=== PATIENT | female | born 1975 | race Caucasian/White ===

== ENCOUNTER → 2019-10-14 07:31 | Outpatient (CLI) | payer BC, SELFPAY ==
[2019-10-14 10:24] LABS: Coronavirus 19 IgG Antibody Negative (Negative); Coronavirus 19 IgM Antibody Negative (Negative)
== END ==
PROVIDERS: Visit Provider Internal Medicine Gastroenterology
DX: Z01.818 Encounter for other preprocedural examination (principal)
CPT/HCPCS: 36415; 86328

== ENCOUNTER 2019-10-15 10:29 | Day surgery (SDC) | payer BC, SELFPAY ==
[2019-10-12 16:37] VITALS: BMI 19.9
--- NOTE | 2019-10-13 09:44 | SUR.PREOP ---
10/13/2019 @ 0944--PHONE CALL MADE TO PATIENT. PATIENT UNDERSTANDS THAT LAB WORK AND COVID TESTING NEEDS TO BE COMPLETED @ 0700 ON 10/14/2019. PATIENT UNDERSTANDS IF LAB WORK AND COVID-19 TESTS ARE NOT COMPLETED BY 12PM ON THAT DATE, THE SURGERY SCHEDULED WILL BE CANCELLED AND RESCHEDULED FOR ANOTHER TIME.
[2019-10-15] VITALS (7 sets, daily range): BP systolic 98–109; BP diastolic 60–72; PULSE 69–93; RESP 18; TEMP 36.4–36.5; O2SAT 95–100
[2019-10-15 11:31] LABS: Urine Pregnancy, HCG Qual. Negative (Negative)
--- NOTE | 2019-10-15 11:34 | SUR.PREOP ---
pt has history of double mastectomy. No limb alert applies per patient. Right eye lens implant.
--- NOTE | 2019-10-15 12:23 | HMH.PROC ---
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 She has functional dyspepsia and functional GERD. She has had recurrent throat pain with globus sensation. She had been on Reglan in the past. She also derive some improvement with Ativan. She has had marked anxiety/stress which often is a trigger. Her last EGD with dilation was June 2018. Procedure: Prior to the procedure, a history and physical exam was performed, and patient's medications and allergies were reviewed. The risks, benefits and alternatives of the sedation and procedure were discussed with the patient. All questions were answered and informed consent was obtained. The patient was brought to the procedure room. Patient identification and proposed procedure were verified by the physician and the nurse. The patient was placed in a left lateral decubitus position and the scope was passed under direct vision. Throughout the procedure, the patient's blood pressure, pulse, and oxygen saturations were monitored continuously. The upper GI endoscopy was accomplished without difficulty. The patient tolerated the procedure well. Findings: The scope was passed directly into the upper esophagus and advanced to the third portion of the duodenum. The post bulbar duodenum and duodenal bulb were normal with normal mucosa and conniventes. The scope was withdrawn through a normal duodenal bulb and pylorus into the stomach. There was some very mild linear reactive gastropathy of the antrum. The remainder of the antrum, body and fundus of the stomach were grossly normal. Upon retroflexion there was a small 1 to 2 cm sliding hiatal hernia. The scope was then withdrawn into the esophagus. There was no evidence of reflux esophagitis or Nicole's. There was no Schatzki's ring. There were tertiary contractions and evidence of moderate esophageal dysmotility. The entire esophagus was dilated to 60 Kazakh/20 mm with a TTS hydrostatic balloon. There was resistance at the cricopharyngeus with increased upper esophageal sphincter resting tone. The remainder of the esophageal mucosa was normal. Impression: 1. Cricopharyngeal spasm status post dilation to 20 mm 2. Nonerosive GERD with moderate esophageal dysmotility Plan: I will discuss additional treatment options including promotility therapy. I would consider initiation of Zelnorm. I will also recommend benzodiazepine/Ativan. I will then reassess for clinical improvement.
== END 2019-10-15 13:36 | disposition home or self-care (01) ==
LOC: OUTP 10:30
PROVIDERS: PCP Family Medicine; Visit Provider Internal Medicine Gastroenterology
PROC: 0DJ08ZZ Inspection of Upper Intestinal Tract, Via Natural or Artificial Opening Endoscopic (ICD-10-PCS; CPT 43235; principal; 2019-10-15 11:30)
DX: J39.2 Other diseases of pharynx (principal); K22.4 Dyskinesia of esophagus; K21.9 Gastro-esophageal reflux disease without esophagitis; K44.9 Diaphragmatic hernia without obstruction or gangrene; E03.9 Hypothyroidism, unspecified; F41.9 Anxiety disorder, unspecified; Z91.040 Latex allergy status; Z88.8 Allergy status to other drugs, medicaments and biological substances; Z80.3 Family history of malignant neoplasm of breast; Z83.3 Family history of diabetes mellitus; Z82.49 Family history of ischemic heart disease and other diseases of the circulatory system; Z90.13 Acquired absence of bilateral breasts and nipples
CPT/HCPCS: 43249; 81025; C1726

== ENCOUNTER 2024-10-27 11:42 | Outpatient (CLI) | payer BC, SELFPAY ==
--- OUTSIDE RECORDS SUMMARY | 2024-09-15 09:00 | XMS_ITS | Encounter Summary ---
Author Organization Healthcare Address [address] [place] [address] Care Team Providers Care Water Filterer Name Role Phone Cory Sandhu MD Primary Care Provider [phone] Skyler Márquez MD Unavailable [phone] Farooq Lacey MD Unavailable Unavailable Encounter Details Date Type Department Care Team (Latest Contact Info) Description 09/15/2024 9:00 AM EDT - 09/15/2024 11:59 PM EDT [facility] [address], [address] [place] [address] Closed fracture of neck of right femur, initial encounter Discharge Disposition: Home or Self Care Social History Tobacco Use Types Packs/Day Years Used Date Smoking Tobacco: Never Passive Smoke Exposure: Never Smokeless Tobacco: Never Alcohol Use Standard Drinks/Week Comments Yes 2 (1 standard drink = 0.6 oz pur e alcohol) rarely Humiliation, Afraid, Rape, and Kick questionnair e Answer Date Recorded Within the last year, have y ou been afraid of your partner or ex-partner? No 03/24/2024 Within the last year, have y ou been humiliated or emotionally abused in other ways by your partner or ex-partner? No Within the last year, have y ou been kicked, hit, slapped, or otherwise physically hurt by your partner or ex-partner? No 03/24/2024 Within the last year, have y ou been raped or forced to have any kind of sexual activity by your partner or ex-partner? No 03/24/2024 PHQ-2 Answer Date Recorded Patient Health Questionnaire-2 Score 0 06/09/2024 Hunger Vital Sign Answer Date Recorded Within the past 12 months, y ou worried that your food would run out before you got the money to buy more. Never true 03/24/20 24 Within the past 12 months, t he food you bought just didn't last and you didn't have money to get more. Never true 03/24/2024 PRAPARE - Transportation Answer Date Re corded In the past 12 months, has l ack of transportation kept you from medical appointments or from getting medications? No 10/2023 In the past 12 months, has l ack of transportation kept you from meetings, work, or from getting things needed for daily living? No 03/24/2024 Housing Stability Vital Sign Answer Ck e Recorded In the last 12 months, was t here a time when you were not able to pay the mortgage or rent on time? No 03/24/2024 In the last 12 months, how many places have you lived? 1 03/24/2024 In the last 12 months, was t here a time when you did not have a steady place to sleep or slept in a senior care (including now)? No 03/24/2024 PHQ-9 Answer Date Recorded Patient Health Questionnaire-9 Score 2 06/09/2024 CAGE ASSESSMENT Answer Date Recorded Cage unable to access Not on file 03/21/2024 Maximum number of drinks you had on a given occasion in the last month? 1 drink 03/21/2024 How many alcoholic Beverages do you typically drink in a week? 0 - 7 per week 03/21/2024 Have you ever felt you should CUT down on your d rinking? 0 03/21/2024 Have you been ANNOYED by peo ple criticizing your drinking? 0 03/21/2024 Have you felt GUILTY about your drinking? 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 0 03/21/2024 CAGE Questionnaire Score 0 024 Utilities Answer Date Recorded In the past 12 months has th e [employer], gas, oil, or water [employer] threatened to shut off services in your home? 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 cholecalciferol (Vitamin D-3) 50 MCG (1999 UT) capsuleIndications: Other osteoporosis without current pathological fracture Take 1 capsule (2,000 Units) by mouth 1 (one) time each day. 04/29/2024 cyclobenzaprine (Flexeril) 5 MG tablet TAKE 1-2 TABLETS BY MOUTH UP TO THREE TIMES PER DAY NEEDED FOR MUSCLE SPASMS 40 tablet 07/13/2024 LORazepam (Ativan) 1 MG tablet Take 1 tablet (1 mg) by mouth at night if needed. For esophageal spasms magnesium, as gluconate, (Magonate) 500 (27 Mg) MG tablet Take 1 tablet (500 mg) by mouth 2 (two) times a day. Pt states she is taking 200mg ondansetron ODT (Zofran-ODT) 4 MG disintegrating tablet Take 1 tablet (4 mg) by mouth every 6 (six) hours if needed for nausea or vomiting. 20 tablet 03/26/2024 Probiotic Product (align) 4 MG capsule 1 capsule (4 mg). 06/03/2023 propranolol (Inderal) 10 MG tablet Take 1 tablet (10 mg) by mouth 2 (two) times a day. Zoledronic Acid (RECLAST IV) Infuse into a venous catheter. DULoxetine (Cymbalta) [address] capsule Take 1 capsule (30 mg) by mouth 1 (one) time each day. Do not crush or chew. liothyronine (Cytomel) 5 MCG tabletIndications:A cquired hypothyroidism Please take 0.5 tablet in AM only. 30 tablet 2 08/11/2024 5 Synthroid 75 MCG tabletIndications:A cquired hypothyroidism Take 1 tablet by mouth daily. 30 tablet 2 08/11/2024 5 documented as of this encounter Plan of Treatment Upcoming Encounters Date Type Department Care Team (Late st Contact Info) Description 11/18/2024 9:30 AM EDT Office Visit [facility] Medicine Specialties [address] [place] [phone] Guilherme Nicole MD [address] [facility] [address] [place] [address] 11/23/2024 12:30 PM EDT Clinical Support [facility] [place] [address] [facility], [address] [place] [phone] 12/07/2024 10:15 AM EDT Office Visit [facility] [place] [address] [facility], [address] [place] [phone] Martinez Panda MD [address] [facility] [address] [place] [phone] 02/21/2025 1:20 PM EDT Office Visit [facility] [place] [address], [address] [place] [address] Edu Allen MD [address] [facility] [address] [place] [address] 03/16/2025 9:50 AM EDT Office Visit [facility] [address] [place] [address] Erik Marin MD [address] [facility] [address] [place] [address] 10/26/2025 9:00 AM EDT Office Visit [facility] [address] [place] [address] Jabari Ballard MD [address] [place] [address] documented as of this encounter Procedures Procedure Name Priority Date/Time Associated Diagnosis Comments XR HIP RIGHT 2 OR 3 VIEWS Routine 09/15/2024 9:13 AM EDT Closed fracture of neck of right femur, initial encounter documented in this encounter Results * XR Hip Right 2 or 3 Views (09/15/2024 9:13 AM EDT) Anatomical Region Laterality Modality Lower Extremities, Hip Right Digital R adiography Impressions 09/15/2024 10:11 AM EDT Healed right femoral neck fracture neck fracture without hardware complication or change in fracture fragment alignment. CRITICAL RESULT: No. COMMUNICATION: Per this written report. Drafted by Jonathan Frost MD on 09/15/2024 10:10 AM Final report signed by Jonathan Frost MD on 09/15/2024 10:11 AM Narrative 09/15/2024 10:11 AM EDT CLINICAL INDICATION: pain TECHNIQUE: XR HIP RIGHT 2 OR 3 VIEWS COMPARISON: June 16, 2024. FINDINGS: 2 views of the right hip show dynamic hip screw fixation of subcapital fracture with unchanged valgus alignment of the femoral neck. Hip joint space and alignment are normal. No hardware complication. Pubic symphysis and sacroiliac joints are normal. Procedure Note Jonathan Frost MD - 09/15/2024 CLINICAL INDICATION: pain TECHNIQUE: XR HIP RIGHT 2 OR 3 VIEWS COMPARISON: June 16, 2024. FINDINGS: 2 views of the right hip show dynamic hip screw fixation of subcapitalfracture with unchanged valgus alignment of the femoral neck. Hip jointspace and alignment are normal. No hardware complication. Pubic symphysisand sacroiliac joints are normal. IMPRESSION: Healed right femoral neck fracture neck fracture without hardwarecomplication or change in fracture fragment alignment. CRITICAL RESULT: No. COMMUNICATION: Per this written report. Drafted by Jonathan Frost MD on 09/15/2024 10:10 AM Final report signed by Jonathan Frost MD on 09/15/2024 10:11 AM us Erik Marin MD IMG XR PROCEDURES Final Resu lt documented in this encounter Visit Diagnoses Diagnosis Closed fracture of neck of right femur, initial encounter documented in this encounter Additional Health Concerns Assessment Noted Time PHQ-9 Depression Total Score: 2 06/09/19 25 8:21 AM EST A fall risk assessment has been complete d for the patient 09/15/2024 9:25 AM EDT A Body Mass Index follow-up plan has been documented for the patient 09/16/2024 1:03 PM EDT documented as of this encounter Care Teams Water Filterer Relationship Specialty Start Date End Date Cory Sandhu MD [address] [place] [address] PCP - General 01/24/21 Skyler Márquez MD [address] [facility], [place] [address] Referring Physician 03/12/21 Farooq Lacey MD [address] [facility], [place] [address] Resident Neurology 05/01/21 documented as of this encounter
--- OUTSIDE RECORDS SUMMARY | 2024-09-15 09:50 | XMS_ITS | Encounter Summary ---
Author Organization Healthcare Address [address] [place] [address] Care Team Providers Care Weekend Receptionist Name Role Phone Cory Sandhu MD Primary Care Provider [phone] Skyler Márquez MD Unavailable [phone] Farooq Lacey MD Unavailable Unavailable Reason for Visit * Reason Comments Follow-up Encounter Details Date Type Department Care Team (Late st Contact Info) Description 09/15/2024 9:50 AM EDT Office Visit [facility] [address] [place] [address] Erik Marin MD [address] [place] [address] Closed fracture of neck of right femur, initial encounter (Primary Dx) Social History Tobacco Use Types Packs/Day Years [...] place to sleep or slept in a detention (including now)? 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 0 03/21/2024 CAGE Questionnaire Score 0 024 Utilities Answer Date Recorded In the past 12 months has th e [employer], gas, oil, or water company threatened to shut off services in your [...] on file documented as of this encounter Last Filed Vital Signs Vital Sign Reading Time Taken Comments Blood Pressure 103/72 09/15/2024 9:27 AM EDT Pulse 110 09/15/2024 9:27 AM EDT Temperature 36.6 C (97.9 F) 09/15/2024 9:27 AM EDT Respiratory Rate - - Oxygen Saturation 98% 09/15/2024 9:27 AM EDT Inhaled Oxygen Concentration - - Weight 61.2 kg (135 lb) 09/15/2024 9:27 AM EDT Height 175.3 cm (5' 9 ) 09/15/2024 9:27 AM EDT Body Mass Index 19.94 09/15/2024 9:27 AM EDT documented in this encounter Miscellaneous Notes * Progress Notes - Tremaine Poon MD - 09/15/2024 9:50 AM EDT Chief Complaint: Right femoral neck fracture status post open reduction internal fixation 03/22/24 HPI: Jacquelyn Dickey is a 49 y.o. female who presents for follow up of the above stated procedures. Patient presents to clinic today with multiple complaints. 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 She now has significant pain in multiple joints including her right hip. She continues to ambulate with a walker only. She localizes her right hip pain to her groin region. She does report that she has been progressing with physical therapy but his curious how much she can push. She was often limited in therapy dueto pain in her other joints. She does have an appointment with Rheumatology next week for further evaluation. Focused MSK Exam: On examination of the right lower extremity she has no pain with log roll her shedoes have tenderness to palpation over the lateral aspect of the right hip. Her hip range of motionis 0 to 70?? with significant pain past 70??. External rotation to 60??. Internal rotation is 10??.Distally she is neurovascularly intact. XRAY: XR --- were ordered, reviewed, and interpreted by us, showing: Interval healing of fracture without evidence of hardware loosening or malfunction Assessment: 49 y.o. female presents s/p above procedure Plan: Reviewed the findings with the patient today. She was still having significant pain in multiple joints it was limiting her from progressing in physical therapy. She has a rheumatology appointment in about a week that will hopefully provide her with next best steps to help her polyarthralgia. Radiographs of the pleased she has healed her fracture well. We will recommend continuing physical therapyas she was able. We will plan to see her back in 6 months with repeat radiographs. The patients images were discussed with them. The patient was given an opportunity to ask questionsand all their questions were answered to their satisfaction. The patient was seen and evaluated by myself and Dr. Marin. Tremaine Poon MD Orthopedic Surgery PGY-2 [facility] Personal Pager: [phone] Orthopaedic Trauma Service Pager: [phone] Orthopaedic Recon/Spine/Foot and Ankle Service Pager: [phone] Cosigned by Erik Marin MD at 09/15/2024 2:25 PM EDT Associated attestation - Erik Marin MD - 09/15/2024 2:25 PM EDT I saw and evaluated the patient with the resident/fellow. I discussed the case with the resident/fellow and agree with the findings and plan as documented. documented in this encounter Plan of Treatment Upcoming Encounters Date Type Department Care Team (Late st Contact Info) Description 11/18/2024 9:30 AM EDT Office Visit [facility] Specialties [address] [place] [address] Guilherme Nicole MD [address] [place] [address] 11/23/2024 12:30 PM EDT Clinical Support [facility] [address] [facility], [address]st [place] [phone] 12/07/2024 10:15 AM EDT Office Visit [facility] [address] [facility], [address] [place] [phone] Martinez Panda MD [address] [facility] [address] [place] [address] 02/21/2025 1:20 PM EDT Office Visit [facility] [address], [address] [place] [address] Edu Allen MD [address] [facility] [address] [place] [address] 03/16/2025 9:50 AM EDT Office Visit [facility] [address] [place] [address] Erik Marin MD [address] [facility] [address] [place] [address] 10/26/2025 9:00 AM EDT Office Visit [facility] [address] [place] [address] Jabari Ballard MD [address] [facility] [address] [place] [phone] Scheduled Orders Name Type Priority Associated Diagnoses Orde r Schedule XR Hip Right 2 or 3 Views Imaging Routine Closed fracture of neck of right femur, initial encounter Expected: 03/17/2025 (Approximate), Expires: 03/17/2026 documented as of this encounter Visit Diagnoses Diagnosis Closed fracture of neck of right femur, initial encounter- Primary documented in this encounter Additional Health Concerns Assessment Noted Time PHQ-9 Depression Total Score: 2 06/09/19 25 8:21 AM EST A fall risk assessment has been complete d for the patient 09/15/2024 9:25 AM EDT A Body Mass Index follow-up plan has been documented for the patient 09/16/2024 1:03 PM EDT documented as of this encounter Care Teams Weekend Receptionist Relationship Specialty Start Date End Date Cory Sandhu MD [address] [place] [address] PCP - General 01/24/21 Skyler Márquez MD [address] [facility], [place] [address] Referring Physician 03/12/21 Farooq Lacey MD [address] [facility], [place] [address] Resident Neurology 05/01/21 documented as of this encounter
--- OUTSIDE RECORDS SUMMARY | 2024-10-20 09:15 | XMS_ITS | Encounter Summary ---
Author Organization Healthcare Address [address] [place] [address] Care Team Providers Care Technical Advisor Name Role Phone Cory Sandhu MD Primary Care Provider [phone] Skyler Márquez MD Unavailable [phone] Farooq Lacey MD Unavailable Unavailable Reason for Visit * Reason Comments Follow-up Encounter Details Date Type Department Care Team (Late st Contact Info) Description 10/20/2024 9:15 AM EDT Office Visit [facility] [address] [facility] [address] [place] [address] Jabari Ballard MD [address] [facility] [address] [place] [address] Monoallelic mutation of PALB2 gene (Primary Dx) Social History Tobacco Use Types Packs/Day Years Used Date Smoking Tobacco: Never Passive Smoke Exposure: Never Smokeless Tobacco: Never Tobacco Cessation:Counseling Given: Not Answered Alcohol Use Standard Drinks/Week Comments Yes 2 [...] Date Recorded Patient Health Questionnaire-2 Score 0 10/20/2024 Hunger Vital Sign Answer Date Recorded Within [...] place to sleep or slept in a mcc (including now)? 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 0 03/21/2024 CAGE Questionnaire Score 0 024 Utilities Answer Date Recorded In the past 12 months has e electric, gas, oil, or water company threatened to [...] Sign Reading Time Taken Comments Blood Pressure 105/73 10/20/2024 9:12 AM EDT Pulse 80 10/20/2024 9:12 AM EDT Temperature 36.9 C (98.5 F) 10/20/2024 9:12 AM EDT Respiratory Rate 16 10/20/2024 9:12 AM EDT Oxygen Saturation 100% 10/20/2024 9:12 AM EDT Inhaled Oxygen Concentration - - Weight 66.1 kg (145 lb 12.8 oz) 10/20/2024 9:12 AM EDT Height 175.3 cm (5' 9 ) 10/20/2024 9:12 AM EDT Body Mass Index 21.53 10/20/2024 9:12 AM EDT documented in this encounter Functional Status * Over the past 2 weeks, how often have you been bothered by any of the following problems? Question Answer Date of Assessment Author Little interest or pleasure in doing things Not at all 10/20/2024 9:16 AM EDT Jia Dunbar Feeling down, depressed, or hopeless Not at all 10/20/2024 9:16 AM EDT Jia Dunbar Patient Health Questionnaire -2 Score 0 10/20/2024 9:16 AM EDT Jia Dunbar documented as of this encounter Miscellaneous Notes * Progress Notes - Jabari Ballard MD - 10/20/2024 9:15 AM EDT Patient ID: Jacquelyn Dickey is a 49 y.o. female. Referring Physician: No referring provider defined for this encounter. 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 HENT: Negative. Eyes: Negative. Respiratory: Negative. Cardiovascular: Negative. Gastrointestinal: Negative. Endocrine: Negative. Genitourinary: Negative. Musculoskeletal: Positive for arthralgias. Skin: Negative. Neurological: Negative. Hematological: Negative. Psychiatric/Behavioral: Negative. Oncology History No history exists. Past Medical History: Diagnosis Date Anxiety Central pain syndrome Chronic constipation 2017 Cluster headache 04/04/2021 Delayed emergence from general anesthesia Dysphagia 2019 Esophageal dilatation Esophageal spasm multiple esophageal dilations Headache, tension-type 04/04/2021 History of infertility Hx of rn long term care use of blood thinners 03/21-05/02 Hypothyroidism Joint pain Memory loss 04/04/2021 Migraine 04/04/2021 Motion sickness PONV (postoperative nausea and vomiting) POTS (postural orthostatic tachycardia syndrome) following surgery Spinal headache After hysterectomy 2-3 months Status post injection of botulinum toxin September 2022 Vitamin D deficiency Past Surgical History: Procedure Laterality Date BREAST BIOPSY BREAST RECONSTRUCTION 2019 SECTION, CLASSIC 2014 COLONOSCOPY ESOPHAGEAL DILATION EYE SURGERY 2018 Lens implant FEMUR FRACTURE SURGERY Right 03/21/2024 MASTECTOMY 2019 MELANOMA EXCISION Left 04/02/2024 SKIN CANCER EXCISION 2020 Basal cell TOTAL ABDOMINAL HYSTERECTOMY W/ BILATERAL SALPINGOOPHORECTOMY Bilateral 04/04/2021 TAHBSO for PALB2 mutation UPPER GASTROINTESTINAL ENDOSCOPY Esophagus dilation 9 times Current Outpatient Medications on File Prior to Visit Medication Sig Dispense Refill busPIRone (Buspar) 10 MG tablet Take 1 tablet (10 mg) by mouth 2 (two) times a day. cholecalciferol (Vitamin D-3) 50 MCG (2000 UT) capsule Take 1 capsule (2,000 Units) by mouth 1 (one) time each day. (Patient taking differently: Take 1 capsule by mouth 2 times a week.) cyclobenzaprine (Flexeril) 5 MG tablet TAKE 1-2 TABLETS BY MOUTH UP TO THREE TIMES PER DAY NEEDED FOR MUSCLE SPASMS (Patient taking differently: as needed. TAKE 1-2 TABLETS BY MOUTH UP TO THREE TIMES PER DAY NEEDED FOR MUSCLE SPASMS) 40 tablet 0 liothyronine (Cytomel) 5 MCG tablet Please take 0.5 tablet in AM only. 30 tablet 2 LORazepam (Ativan) 1 MG tablet Take 1 tablet (1 mg) by mouth at night if needed. For esophageal spasms magnesium, as gluconate, (Magonate) 500 (27 Mg) MG tablet Take 1 tablet (500 mg) by mouth 2 (two) times a day. Pt states she is taking 200mg ondansetron ODT (Zofran-ODT) 4 MG disintegrating tablet Take 1 tablet (4 mg) by mouth every 6 (six)hours if needed for nausea or vomiting. 20 tablet 0 Probiotic Product (align) 4 MG capsule 1 capsule (4 mg). propranolol (Inderal) 10 MG tablet Take 1 tablet (10 mg) by mouth 2 (two) times a day. Synthroid 75 MCG tablet Take 1 tablet by mouth daily. 30 tablet 2 Zoledronic Acid (RECLAST IV) Infuse into a venous catheter. DULoxetine (Cymbalta) [address] capsule Take 1 capsule (30 mg) by mouth 1 (one) time each day. Do not crush or chew. No current facility-administered medications on file prior to visit. Allergies Allergen Reactions Latex Dermatitis and Hives Voltaren [Diclofenac] Dermatitis Social History Tobacco Use Smoking status: Never Passive exposure: Never Smokeless tobacco: Never Vaping Use Vaping status: Never Used Substance Use Topics Alcohol use: Yes Alcohol/week: 2.0 standard drinks of alcohol Types: 2 Standard drinks or equivalent per week Comment: rarely Drug use: Never Family History Problem Relation Name Age of Onset Breast cancer Mother Karla Dickey Arthritis Mother Karla Dickey Cancer Mother Karla Dickey Hyperlipidemia Mother Karla Dickey Hypothyroidism Mother Karla Dickey Stroke Mother Karla Dickey Ovarian cancer Maternal Grandmother Ratna Gordon Arthritis Maternal Grandmother Ratna Gordon Cancer Maternal Grandmother Ratna Gordon COPD Maternal Grandmother Ratna Gordon Heart disease Maternal Grandmother Ratna Gordon Breast cancer Other Brain Tumor Father Prabhu Dickey Hypertension Father Prabhu Dickey Diabetes Maternal Grandfather Ed Evan Heart disease Maternal Grandfather Ed Evan Kidney disease Maternal Grandfather Ed Gordon Hypertension Maternal Grandfather Ed Evan COPD Paternal Grandfather Kt Dickey Vision loss Paternal Grandfather Kt Dickey Dementia Paternal Grandfather Kt Dickey Arthritis Paternal Grandmother Kadie Dickey Cancer Paternal Grandmother Kadie Dickey COPD Paternal Grandmokrishan Dickey Hearing loss Paternal Grandmother Kadie Dickey Alzheimer's disease Father's Brother Jamey Alzheimer's disease Father's Brother Jonathan Objective Physical Exam: Vital Signs for this encounter: BSA: 1.79 meters squared Visit Vitals BP 105/73 (BP Location: Right arm, Patient Position: Sitting, BP Cuff Size: Large adult) Pulse 80 Temp 36.9 ??C (98.5 ??F) (Temporal) Resp 16 Ht 1.753 m (5' 9 ) Wt 66.1 kg (145 lb 12.8 oz) LMP 03/21/2021 (Approximate) SpO2 100% BMI 21.53 kg/m?? OB Status Hysterectomy Smoking Status Never BSA 1.79 m?? Physical Exam Vitals reviewed. 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 Constitutional: Appearance: Normal appearance. HENT: Head: Normocephalic. Eyes: Conjunctiva/sclera: Conjunctivae normal. Cardiovascular: Rate and Rhythm: Normal rate and regular rhythm. Pulses: Normal pulses. Heart sounds: Normal heart sounds. Pulmonary: Effort: Pulmonary effort is normal. Breath sounds: Normal breath sounds. Chest: Breasts: Right: Normal. No mass. Left: Normal. No mass. Abdominal: General: There is no distension. Palpations: Abdomen is soft. There is no mass. Tenderness: There is no abdominal tenderness. Genitourinary: General: Normal vulva. Vagina: Normal. Uterus: Absent. Adnexa: Right adnexa normal and left adnexa normal. Rectum: Normal. Comments: Mild atrophic vaginal changes, no masses Musculoskeletal: General: Normal range of motion. Cervical back: Normal range of motion. Lymphadenopathy: Upper Body: Right upper body: No supraclavicular or axillary adenopathy. Left upper body: No supraclavicular or axillary adenopathy. Neurological: General: No focal deficit present. Mental Status: She is alert and oriented to person, place, and time. Psychiatric: Mood and Affect: Mood normal. Behavior: Behavior normal. Performance Status: Asymptomatic Pain Scale: 0 Results: WBC Count (10*3/uL) Date/Time Value 03/24/2024 0122 8.17 HGB (g/dL) Date/Time Value 03/24/2024 0122 10.3 (L) HCT (%) Date/Time Value 03/24/2024 0122 31.4 (L) Platelet Count (10*3/uL) Date/Time Value 03/24/2024 0122 163 Creatinine, Plasma (mg/dL) Date/Time Value 10/08/2024 1645 0.83 06/17/2024 1352 0.79 AST, Plasma (U/L) Date/Time Value 10/08/2024 1645 26 04/26/2021 0948 16 CA 125 (U/mL) Date/Time Value 10/20/2024 0916 7.02 05/22/2023 1218 7.25 05/08/2022 0910 7.86 01/24/2021 1141 18.50 Final Diagnosis (no units) Date/Time Value 04/04/2021 1549 A. ovary and fallopian tube, right, salpingo-oophorectomy: - physiologic changes, ovary. - no pathologic abnormality, fallopian tube. B. ovary and fallopian tube, left, salpingo-oophorectomy: - physiologic changes, ovary. - no pathologic abnormality, fallopian tube. C. uterus and cervix, total hysterectomy: - no pathologic abnormality, no dysplasia identified, cervix. - early secretory endometrium, no atypical hyperplasia or carcinoma identified. - adenomyosis and benign leiomyomata, myometrium. D. omentum, excision: - benign adipose tissue. Assessment/Plan Problem 1: Problem Monoallelic Mutation of Palb2 Gene 49 y.o. 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 - CA125 today - f/u annually for pelvic and breast exam - ongoing health issues - f/u with ortho, rheumatology, endocrinology, bone mineral clinics Problem 2: Hypothyroidism Assessment and plan 2 Management per PCP Problem 3: Esophageal stricture Assessment and plan 3: S/P multiple dilation procedures Problem 4: POTS Assessment and plan 4 Diagnosed after surgery Was on cardiac medication for a while (metoprolol?) but off now and doing well Problem 5: Urogenital syndrome Assessment and plan 5 Mild vaginal atrophy Hesitent to use vaginal estrogen due to breast cancer risk Problem 6: Menopause Assessment and plan 6: Managing well at present Calcium supplements Check bone density next year Problem 7: Assessment and plan 7: Team based care includes nurse intake, history, discussion of results, appointment scheduling, lab orders, phlebotomy and documentation. Encounter time 30 min Jabari Ballard MD [facility] [address] [facility] [address] [facility] [address] Dept: [phone] Dept Loc: [phone] documented in this encounter Plan of Treatment Upcoming Encounters Date Type Department Care Team (Late st Contact Info) Description 11/18/2024 9:30 AM EDT Office Visit [facility] Medicine Specialties [address] [place] [address] Guilherme Nicole MD [address] [facility] [address] [place] [address] 11/23/2024 12:30 PM EDT Clinical Support [facility] Laboratory Services [address] [facility] [place] [address] 12/07/2024 10:15 AM EDT Office Visit [facility] Bone & Mineral Metabolism [address], [address] [place] [address] Martinez Panda MD [address] [place] [address] 02/21/2025 1:20 PM EDT Office Visit [facility] [address], [address] [place] [address] Edu Allen MD [address] [place] [address] 03/16/2025 9:50 AM EDT Office Visit [facility] Orthopaedic Surgery & Sports Medicine [address] [place] [address] Erik Marin MD [address] [place] [address] 10/26/2025 9:00 AM EDT Office Visit [facility] [address] [place] [address] Jabari Ballard MD [address] [facility] [address] [place] [address] documented as of this encounter Procedures Procedure Name Priority Date/Time Associated Diagnosis Comments CA 125 Routine 10/20/2024 9:16 AM EDT Monoallelic mutation of PALB2 gene documented in this encounter Results * CA 125 (10/20/2024 9:16 AM EDT) CA 125 7.02 <=38.00 U/mL 10/20/2024 10:33 AM EDT [facility] Blood Venous blood specimen / Unknown Venipuncture / Unknown 10/20/2024 9:16 AM EDT 10/20/2024 9:53 AM EDT Narrative [facility] - 10/20/2024 10:33 AM EDT Performed by Kenneth electrochemiluminescent immunoassay. Results obtained with different test methods or kits cannot be used interchangeably. Jabari Ballard MD LAB BLOOD ORDERABLES Final Result [facility] [address] [place] [address] documented in this encounter Visit Diagnoses Diagnosis Monoallelic mutation of PALB2 gene- Primary documented in this encounter Additional Health Concerns Assessment Noted Time PHQ-9 Depression Total Score: 2 01/22/20 25 8:21 AM EST A fall risk assessment has been complete d for the patient 10/20/2024 1:12 PM EDT A Body Mass Index follow-up plan has been documented for the patient 10/26/2024 1:05 AM EDT documented as of this encounter Care Teams Technical Advisor Relationship Specialty Start Date End Date Cory Sandhu MD [phone] PCP - General 01/24/21 Skyler Márquez MD [address] [facility], [place] [address] Referring Physician 03/12/21 Farooq Lacey MD [address] [facility], [place] [address] Resident Neurology 05/01/21 documented as of this encounter
--- OUTSIDE RECORDS SUMMARY | 2024-10-20 13:20 | XMS_ITS | Encounter Summary ---
Author Organization Healthcare Address [address] [place] [address] Care Team Providers Care Corporate Associate Attorney Name Role Phone Cory Sandhu MD Primary Care Provider [phone] Skyler Márquez MD Unavailable [phone] Farooq Lacey MD Unavailable Unavailable Reason for Referral * Consultation (Routine) - Authorized Specialty Diagnoses / Procedures Referred By Contac t Referred To Contact Diagnoses Acquired hypothyroidism Edu Allen MD [address] [facility] [address] [place] [address] Phone: tel: fax: Referral ID Status Reason Start Date Expiration Date V isits Requested Visits Authorized [id number] Authorized 10/20/2024 04/21/2026 1 1 * Genetic Testing (Routine) - Closed Specialty Diagnoses / Procedures Referred By Contac t Referred To Contact Lab Diagnoses Acquired hypothyroidism Procedures IgA Edu Allen MD [address] [facility] [address] [place] [address] Phone: tel: fax: Referral ID Status Reason Start Date Expiration Date Visits Re quested Visits Authorized [id number] Closed 10/20/2024 04/21/2026 1 1 Reason for Visit * Reason Comments Follow-up * Consultation (Routine) - Closed Specialty Diagnoses / Procedures Referred By Contac t Referred To Contact Diagnoses Hypothyroidism, unspecified type Edu Allen MD [address] [place] [address] Phone: tel: fax: Referral ID Status Reason Start Date Expiration Date Visits Re quested Visits Authorized [id number] Closed 08/11/2024 02/10/2026 1 1 Encounter Details Date Type Department Care Team (Late st Contact Info) Description 10/20/2024 1:20 PM EDT Office Visit [facility] [address] [place] [address] Edu Allen MD [address] [place] [address] Acquired hypothyroidism (Primary Dx); Swelling; Weight gain; Other osteoporosis without current pathological fracture; Other fatigue Social History Tobacco Use Types Packs/Day Years [...] place to sleep or slept in a skilled nursing (including now)? No 03/24/2024 PHQ-9 Answer Date [...] drink first t fortino in the morning (EYE-WASTE DISPOSAL LEAKAGE TESTER) to steady your nerves or to get rid of a hangover? 0 03/21/2024 CAGE Questionnaire Score 0 024 Utilities Answer Date Recorded In the past 12 months has th e electric, gas, oil, or water company [...] Sign Reading Time Taken Comments Blood Pressure 113/75 10/20/2024 1:12 PM EDT Pulse 80 10/20/2024 1:12 PM EDT Temperature 36.7 C (98 F) 10/20/2024 1:12 PM EDT Respiratory Rate - - Oxygen Saturation 100% 10/20/2024 1:12 PM EDT Inhaled Oxygen Concentration - - Weight 66.3 kg (146 lb 2.6 oz) 10/20/2024 1:12 P M EDT Height 175.3 cm (5' 9 ) 10/20/2024 1:12 PM EDT Body Mass Index 21.58 10/20/2024 1:12 PM EDT documented in this encounter Functional Status * Over the past 2 weeks, how often have you been bothered by any of the following problems? Question Answer Date of Assessment Author Little interest or pleasure in doing things Not at all 10/20/2024 9:16 AM EDT Jia Dunabr Feeling down, depressed, or hopeless Not at all 10/20/2024 9:16 AM EDT Jia Dunbar Patient Health Questionnaire -2 Score 0 10/20/2024 9:16 AM EDT Jia Dunbar documented as of this encounter Miscellaneous Notes * Patient Instructions - Edu Allen MD - 10/20/2024 1:20 PM EDT It was a pleasure meeting you today! I will check celiac and growth hormones No change to thyroid medication as levels are normal Please return to the clinic in 4 months * Progress Notes - Edu Allen MD - 10/20/2024 1:20 PM EDT Images from the original note were not included. Subjective Jacquelyn Dickey is a 49 y.o., female here for follow up for hypothyroidism. Interval History Last Visit:08.11.2024 Since last visit having nausea and extreme exhaustion She has night time swelling in hands and feet Seen by rheum and will be seen again 10.21.24 Tried steroid which did not help Prior to breaking leg 132 b gained 15lb despite changes Father with acromegaly Current regimen: Synthroid 75mcg + LT3 2.5mcg HYPOTHYROIDISM HPI: Diagnosed: 2013 during Previously followed with [facility] Endocrinology Dr. Reyes last seen . Referred to [facility] for 2nd opinion in setting of persisting low TSH. Patient with R proximal femur fracture in 03.21.[address] Panda and had Reclast infusion 06.04.24. Since then has been noticing more hot flashes. Reduced Synthroid to 50mcg on 04.29.2024 She is taking 10mcg liothyronine daily. She has been on this x 1 year. Prior to that was on WAREHOUSE GUARD thyroid. Reports that she is more fatigued and not sleeping well States she has difficulty staying asleep. States her reports that she does not snore. Reports still having brain fog despite being on LT3. She denied change in BM; she has slowed stomach emptying and constipation at baseline. She takes LT4in AM and waits 30 minutes before meal She has coffee within 30 minutes She does not take MVI She has tried melatonin in the past - took maximum dose and did not assist with sleep Lab Results Component Value Date TSH 2.01 10/20/2024 She has not changed the preparation of thyroid replacement, has not missed pills over the last 2 months. She has not started or stopped estrogen replacement therapy or OCP's since last TSH level. She is not taking biotin or any supplements that could potentially contain thyroid hormone. She has never had thyroid US. 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 Past Medical History: Diagnosis Date Anxiety Central pain syndrome Chronic constipation 2018 Cluster headache 04/04/2021 Delayed emergence from general anesthesia Dysphagia 2020 Esophageal dilatation Esophageal spasm multiple esophageal dilations Headache, tension-type 04/04/2021 History of infertility Hx of residential use of blood thinners 03/21-05/02 Hypothyroidism Joint [...] ENDOSCOPY Esophagus dilation 9 times Current Outpatient Medications: busPIRone (Buspar) 10 MG tablet, Take 1 tablet (10 mg) by mouth 2 (two) times a day., Disp: , Rfl: cholecalciferol (Vitamin D-3) 50 MCG (2000 UT) capsule, Take 1 capsule (2,000 Units) by mouth 1 (one) time each day. (Patient taking differently: Take 1 capsule by mouth 2 times a week.), Disp: , Rfl: cyclobenzaprine (Flexeril) 5 MG tablet, TAKE 1-2 TABLETS BY MOUTH UP TO THREE TIMES PER DAY NEEDED FOR MUSCLE SPASMS (Patient taking differently: as needed. TAKE 1-2 TABLETS BY MOUTH UP TO THREE TIMES PER DAY NEEDED FOR MUSCLE SPASMS), Disp: 40 tablet, Rfl: 0 liothyronine (Cytomel) 5 MCG tablet, Please take 0.5 tablet in AM only., Disp: 45 tablet, Rfl: 1 LORazepam (Ativan) 1 MG tablet, Take 1 tablet (1 mg) by mouth at night if needed. For esophageal spasms, Disp: , Rfl: magnesium, as gluconate, (Magonate) 500 (27 Mg) MG tablet, Take 1 tablet (500 mg) by mouth 2 (two) times a day. Pt states she is taking 200mg, Disp: , Rfl: ondansetron ODT (Zofran-ODT) 4 MG disintegrating tablet, Take 1 tablet (4 mg) by mouth every 6 (six) hours if needed for nausea or vomiting., Disp: 20 tablet, Rfl: 0 Probiotic Product (align) 4 MG capsule, 1 capsule (4 mg)., Disp: , Rfl: propranolol (Inderal) 10 MG tablet, Take 1 tablet (10 mg) by mouth 2 (two) times a day., Disp: , Rfl: Synthroid 75 MCG tablet, Take 1 tablet by mouth daily., Disp: 90 tablet, Rfl: 1 Zoledronic Acid (RECLAST IV), Infuse into a venous catheter., Disp: , Rfl: Allergies Allergen Reactions Latex Dermatitis and Hives [...] Name Age of Onset Breast cancer Mother Karlamatt Dickey Arthritis Mother Karlamatt Dickey Cancer Mother Karlamatt Dickey Hyperlipidemia Mother Karlamatt Dickey Hypothyroidism Mother Karlamatt Dickey Stroke Mother Karlamatt Dickey Ovarian cancer Maternal Grandmother Ratna Gordon Arthritis Maternal Grandmother Ratna Gordon Cancer Maternal Grandmother Ratna Gordon COPD Maternal Grandmother Ratna Gordon Heart disease Maternal Grandmother Ratna Gordon Breast cancer Other Brain Tumor Father Prabhu Dickey Hypertension Father Prabhu Dickey Diabetes Maternal Grandfather Ed Gordon Heart disease Maternal Grandfather Ed Gordon Kidney disease Maternal Grandfather Ed Gordon Hypertension Maternal Grandfather Ed Gordon COPD Paternal Grandfather Kt Dickey Vision loss Paternal Grandfather [place] Dickey Dementia Paternal Grandfather [place] Dickey Arthritis Paternal Grandmother Kadie Dickey Cancer Paternal Grandmother Kadie Dickey COPD Paternal Grandmother Kadie Dickey Hearing loss Paternal Grandmother Kadie Dickey Alzheimer's disease Father's Brother Jamey Alzheimer's disease Father's Brother Jonathan Review of Systems: See HPI Review of Systems Constitutional: Positive for fatigue. Cardiovascular: Negative for chest pain. Gastrointestinal: Negative for nausea and vomiting. A complete ROS was performed and is otherwise negative in detail Objective Physical Exam: BP 113/75 (BP Location: Left arm, Patient Position: Sitting, BP Cuff Size: Adult long) Pulse 80 Temp 36.7 ??C (98 ??F) (Skin) Ht 1.753 m (5' 9 ) Wt 66.3 kg (146 lb 2.6 oz) BMI 21.58 kg/m?? GEN:Sitting up comfortably, well appearing, non-Cushingoid EYES: sclera anicteric, extraocular motion grossly intact HENT: OP clear Neck: no palpable abnormalities in the thyroid; non-tender submandibular and parotid salivary glands; no supraclavicular fat pads Lymphatic: normal anterior, posterior and supraclavicular cervical lymph nodes PULM: No increased work of breathing, completing full sentences, symmetric chest rise CV: Normal rate, regular rhythm EXT: Warm well perfused NEURO: A&Ox4. No dysarthria. Moving all extremities voluntarily SKIN: normal temperature/texture, no ecchymoses; normal pigmentation, PSYCH: normal mood and affect Date TSH FT4 TT4 T3U TPO Ab 25D Old New 11.16.22 0.823 1.04 35 WAREHOUSE GUARD Thyroid 60mg 12.27.23 0.545 0.99 WAREHOUSE GUARD Thyroid 60mg 2.23.23 0.096 1.19 WAREHOUSE GUARD Thyroid 60mg 12.27.23 0.545 0.99 WAREHOUSE GUARD Thyroid 60mg S 88 LT3 10 5.16.24 0.013 L 1.87 H 72.6 Took LT3 5mcg daily instead of 10mcg S 88 LT3 5 S 75 LT3 10 11.21.24 0.12 1.2 S 75 LT3 10 S 50 LT3 10 1.22.25 9:41 AM 1.56 0.8 97.2 ACTH 13.6 Cortisol 8.9 Mag 2.4 B12 675 TSAT 15% Ferritin 28 S 50 LT3 10 S 75 LT3 5 2.6.25 Done with different provider 0.434 1.23 68 S 75 LT3 5 3.24.25 0.18 0.9 S 75 LT3 5 S 75 LT3 2.5 5.23.25 0.456 1.46 S 75 LT3 2.5 6.2.25 1.040 1.14 S 75 LT3 2.5 IMAGING DXA 03.31.2024 DXA with VFA 04.12.2024 FINDINGS: VFA: LVA Morphometry performed on T8-L4 vertebrae: There is no e/o vertebral compression deformity on the VFA study I have reviewed prior records. Rec Celiac Jayce - moving constantly due pain in leg and shoulder and waks up from that Pain waking Assessment/Plan Diagnoses and all orders for this visit: Hypothyroidism, unspecified type Current regimen: Synthroid 75mcg and LT3 2.5mcg daily Recent TFT's on 10.08.24 show suppressed TSH 0.456 and FT4 1.46 Continue current regimen Screen for celiac disease to see if contributing to sxs of nausea and extreme fatigue Repeat TFT's in 4 months Weight Gain Swelling Check IGF-1; patient report family member with acromegaly Other fatigue Patient reports improvement in sleep with magnesium supplementation but sleep is getting interrupted due to muscle pain/legs aching - is following with PT Iron, folate, vitamin B12, ferritin WNL AM ACTH and cortisol WNL therefore lower suspicion of AI ?related to lack of E2 but unable to take E2 due to PALB2 mutation Other osteoporosis without current pathological fracture Patient s/p R proximal femur fracture in setting of fall at standing height c/w fragility fracture S/p Reclast infusion 1. Following with bone clinic with follow up scheduled RTC in 2 months. Orders Placed This Encounter Procedures Insulin-Like Growth Factor 1 with calculated Z- score Tissue Transglutaminase (tTG) Ab, IgA (SO) IgA Follow Up BBPR I have answered my patient's questions to the best of my ability and have encouraged her to call with any additional questions. Edu Allen MD Time Spent: I personally spent a total of 34 minutes on this encounter. This time includes face to face with patient, counseling and discussion and/or coordination of care. CC FYI PHYSICIANS documented in this encounter Plan of Treatment Upcoming Encounters Date Type Department Care Team (Late st Contact Info) Description 11/18/2024 9:30 AM EDT Office Visit [facility] Medicine Specialties [address] [place] [address] Guilherme Nicole MD [address] [place] [address] 11/23/2024 12:30 PM EDT Clinical Support [facility] Laboratory Services [address] [place] [address] 12/07/2024 10:15 AM EDT Office Visit [facility] Bone & Mineral Metabolism [address], [address] [place] [address] Martinez Panda MD [address] [place] [address] 02/21/2025 1:20 PM EDT Office Visit [facility] [address], [address] [place] [address] Edu Allen MD [address] [facility] [address] [facility] [address] [place] [address] 03/16/2025 9:50 AM EDT Office Visit [facility] Orthopaedic Surgery & Sports Medicine [address] [place] [address] Erik Marin MD [address] [place] [address] 10/26/2025 9:00 AM EDT Office Visit [facility] [address] [place] [phone] Jabari Ballard MD [address] [facility] [facility] [address] [place] [address] Scheduled Referrals Name Type Priority Associated Diagnoses Orde r Schedule Follow Up [facility] Outpatient Referral Routine Acquired hypothyroidism Expected: 02/19/2025, Expires: 04/23/2026 documented as of this encounter Results * IgA (10/20/2024 2:22 PM EDT) IGA 108 75 - 400 mg/dL 10/20/2024 6:11 PM EDT [facility] Blood Venous blood specimen / Unknown Venipuncture / Unknown 10/20/2024 2:22 PM EDT 10/20/2024 2:22 PM EDT us Edu Allen MD LAB BLOOD ORDERABLES Final R esult [facility] [address] [place] [address] * (ABNORMAL) Tissue Transglutaminase (tTG) Ab, IgA (SO) (10/20/2024 2:22 PM EDT) Tissue Transglutaminase (tTG) Ab, IgA 17.87(H) 0.00 - 4.99 FLU 10/24/2024 1:15 AM EDT [facility] ([facility] Blood Venous blood specimen / Unknown Venipuncture / Unknown 10/20/2024 2:22 PM EDT 10/20/2024 2:22 PM EDT Narrative [facility] ([facility]) - 10/24/2024 1:15 AM EDT INTERPRETIVE INFORMATION: Tissue Transglutaminase (tTG) Antibody, IgA Presence of the tissue transglutaminase (tTG) IgA antibody is associated with gluten-sensitive enteropathies such as celiac disease and dermatitis herpetiformis. Individuals with positive results should be confirmed with small intestinal biopsy to establish celiac disease diagnosis. tTG IgA antibody concentrations greater than 50 FLU exhibits higher correlation with results of duodenal biopsies consistent with celiac disease. For antibody concentrations greater than or equal to 5 FLU but less than 10 FLU, additional testing for endomysial (HECTOR) IgA concentrations may improve the positive predictive value for disease. A decrease in tTG IgA antibody concentration after initiation of a gluten-free diet may indicate a response to therapy. Performed By: [facility] [address] [place] [address] [employer] Un[employer] Equipment Tender: Jasvir Guzman MD, PhD CLIA Number: [id number] Edu Allen MD LAB REF LAB BLOOD AND FLUID ORD Final Result [email or web address]) [address] [place] [address] * Insulin-Like Growth Factor 1 with calculated Z- score (10/20/2024 2:22 PM EDT) IGF 1 (Insulin-Like Growth Factor 1) 201 62 - 243 ng/mL 10/23/2024 2:17 AM EDT [email or web address]) IGF 1 Z Score Calculation 1.2 10/23/2024 2:17 AM EDT [email or web address]) Blood Venous blood specimen / Unknown Venipuncture / Unknown 10/20/2024 2:22 PM EDT 10/20/2024 2:22 PM EDT Narrative [facility]) - 10/23/2024 2:17 AM EDT INTERPRETIVE INFORMATION: IGF 1 Z-SCORE CALCULATION A Z score is the number of standard deviations a given result is above (positive score) or below (negative score) the age- and sex-adjusted population mean. Results that are within the IGF-1 reference interval will have a Z score between -2.0 and +2.0. Performed By: [facility] [address] [place] [address] [employer] Tender: Jasvir Guzman MD, PhD CLIA Number: [id number] us Edu Allen MD LAB BLOOD ORDERABLES Final R esult [facility] [employer]) [address] [place] [address] documented in this encounter Visit Diagnoses Diagnosis Acquired hypothyroidism- Primary Unspecified hypothyroidism Swelling Localized superficial swelling, mass, or lump Weight gain Other symptoms concerning nutrition, metabolism, and development Other osteoporosis without current pathological fracture Other fatigue documented in this encounter Additional Health Concerns Assessment Noted Time PHQ-9 Depression Total Score: 2 06/09/19 25 8:21 AM EST A fall risk assessment has been complete d for the patient 10/20/2024 1:12 PM EDT A Body Mass Index follow-up plan has been documented for the patient 10/26/2024 1:05 AM EDT documented as of this encounter Care Teams Corporate Associate Attorney Relationship Specialty Start Date End Date Cory Sandhu MD [address] [place] [address] PCP - General 01/24/21 Skyler Márquez MD [address] [facility], [place] [address] Referring Physician 03/12/21 Farooq Lacey MD [address] [place] [address] Resident Neurology 05/01/21 documented as of this encounter
--- OUTSIDE RECORDS SUMMARY | 2024-10-20 14:40 | XMS_ITS | Encounter Summary ---
Author Organization Healthcare Address [address] [place] [address] Care Team Providers Care Validation Manager Name Role Phone Cory Sandhu MD Primary Care Provider [phone] Skyler Márquez MD Unavailable [phone] Farooq Lacey MD Unavailable Unavailable Reason for Visit * Genetic Testing (Routine) - Closed Specialty Diagnoses / Procedures Referred By Contac t Referred To Contact Lab Diagnoses Acquired hypothyroidism Procedures Edu Azar MD [address] [address] Phone: tel: fax: Referral ID Status Reason Start Date Expiration Date Visits Re quested Visits Authorized [id number] Closed 10/20/2024 04/21/2026 1 1 Encounter Details Date Type Department Care Team (Latest Contact Info) Description 10/20/2024 2:40 PM EDT Clinical Support [facility] Laboratory Services [address] [facility] [address] [facility], 1st [place] [address] Acquired hypothyroidism; Swelling; Weight gain; Hypothyroidism, unspecified type Social History Tobacco Use Types Packs/Day Years [...] place to sleep or slept in a usp (including now)? No 03/24/2024 PHQ-9 Answer Date [...] drink first t fortino in the morning (EYE-DROP WIRER) to steady your nerves or to get [...] on file documented as of this encounter Functional Status * Over the [...] Score 0 10/20/2024 9:16 AM EDT Jia Dunbra documented as of this encounter Plan of Treatment Upcoming Encounters Date Type Department Care Team (Late st Contact Info) Description 11/18/2024 9:30 AM EDT Office Visit [facility] Medicine Specialties [address], [address]nd [place] [address] Guilherme Niocle MD [address] [place] [address] 11/23/2024 12:30 PM EDT Clinical Support [facility] Laboratory Services [address] [facility], 1st [place] [address] 12/07/2024 10:15 AM EDT Office Visit [facility] Bone & Mineral Metabolism [address], [address] [place] [address] Martinez Panda MD [address] [place] [address] 02/21/2025 1:20 PM EDT Office Visit [facility] Specialty Care Clinic [address], [address] [place] [address] Edu Allen MD [address] [facility] [address] [place] [address] 03/16/2025 9:50 AM EDT Office Visit [facility] Orthopaedic Surgery & Sports Medicine [address], 1st [address] [place] [address] Erik Marin MD [address] [place] [address] 10/26/2025 9:00 AM EDT Office Visit [facility] [address] [facility] [address] [place] [address] Jabari Ballard MD [address] [facility] [address] [place] [address] documented as of this encounter Procedures Procedure Name Priority Date/Time Associated Diagnosis Comments TISSUE TRANSGLUTAMINASE (TTG) AB, IGA (SO) Routine 10/20/2024 2:22 PM EDT Acquired hypothyroidism INSULIN-LIKE GROWTH FACTOR 1 (IGF-1) WITH CALCULATED Z-SCORE (SO) Routine 10/20/2024 2:22 PM EDT Swelling Weight gain TSH Routine 10/20/2024 2:22 PM EDT Hypothyroidism, unspecified type FREE T4, PLASMA Routine 10/20/2024 2:22 PM EDT Hypothyroidism, unspecified type IGA, PLASMA Routine 10/20/2024 2:22 PM EDT Acquired hypothyroidism documented in this encounter Results * Thyroid Stimulating Hormone, Plasma (10/20/2024 2:22 PM EDT) Thyroid Stimulating Hormone, Plasma 2.01 0.40 - 4.20 uIU/mL 10/20/2024 5:55 PM EDT [facility] Blood Venous blood specimen / Unknown Venipuncture / Unknown 10/20/2024 2:22 PM EDT 10/20/2024 2:22 PM EDT Narrative [facility] - 10/20/2024 5:55 PM EDT Trimester Specific Ranges TSH ( IU/mL) 1st Trimester 0.1 - 3.0 2nd Trimester 0.19 - 4.06 3rd Trimester 0.3 - 3.7 Edu Allen MD LAB BLOOD ORDERABLES Final R esult Performing Organization Address City/[facility] Co de Phone Number [facility] [address] [place] [address] * Free T4, Plasma (10/20/2024 2:22 PM EDT) Free T4, Plasma 1.3 0.8 - 1.7 ng/dL 10/20/2024 5:55 PM EDT [facility] Blood Venous blood specimen / Unknown Venipuncture / Unknown 10/20/2024 2:22 PM EDT 10/20/2024 2:22 PM EDT Narrative [facility] - 10/20/2024 5:55 PM EDT Free T4 Trimester Specific Ranges 1st Trimester 0.9 - 1.50 ng/dL 2nd Trimester 0.7 - 1.40 ng/dL 3rd Trimester 0.7 - 1.24 ng/dL Edu Allen MD LAB BLOOD ORDERABLES Final R esult Performing Organization Address City/[facility]/ZIP Co de Phone Number [facility] [address] [place] [address] * Insulin-Like Growth Factor 1 with calculated Z- score (10/20/2024 2:22 PM EDT) IGF 1 (Insulin-Like Growth Factor 1) 201 62 - 243 ng/mL 10/23/2024 2:17 AM EDT [facility] IGF 1 Z Score Calculation 1.2 10/23/2024 2:17 AM EDT [facility] ([facility]) Blood Venous blood specimen / Unknown Venipuncture / Unknown 10/20/2024 2:22 PM EDT 10/20/2024 2:22 PM EDT Narrative [facility] - 10/23/2024 2:17 AM EDT INTERPRETIVE INFORMATION: IGF 1 Z-SCORE CALCULATION A Z score is the number of standard deviations a given result is above (positive score) or below (negative score) the age- and sex-adjusted population mean. Results that are within the IGF-1 reference interval will have a Z score between -2.0 and +2.0. Performed By: [facility] [address] [place] [address] Server Systems Administrator: Jasvir Guzman MD, PhD CLIA Number: [id number] Edu Allen MD LAB BLOOD ORDERABLES Final R esult [facility] [address] [place] [phone] * (ABNORMAL) Tissue Transglutaminase (tTG) Ab, IgA (SO) (10/20/2024 2:22 PM EDT) Pathologist [facility] Tissue Transglutaminase (tTG) Ab, IgA 17.87(H) 0.00 - 4.99 FLU 10/24/2024 1:15 AM EDT [facility]) Blood Venous blood specimen / Unknown Venipuncture / Unknown 10/20/2024 2:22 PM EDT 10/20/2024 2:22 PM EDT Narrative [facility]) - 10/24/2024 1:15 AM EDT INTERPRETIVE INFORMATION: [...] indicate a response to therapy. Performed By: [facility] [address] [place] [address] Server Systems Administrator: Jasvir Guzman MD, PhD CLIA Number: [id number] Edu Allen MD LAB REF LAB BLOOD AND FLUID ORD Final Result Performing Organization Address City/[facility]/ZIP Co de Phone Number [facility] ([facility]) [address] [place] [address] * IgA (10/20/2024 2:22 PM EDT) IGA 108 75 - 400 mg/dL 10/20/2024 6:11 PM EDT [facility] Blood Venous blood specimen / Unknown Venipuncture / Unknown 10/20/2024 2:22 PM EDT 10/20/2024 2:22 PM EDT Edu Allen MD LAB BLOOD ORDERABLES Final R esult [facility] [address] [place] [address] documented in this encounter Visit Diagnoses Diagnosis Acquired hypothyroidism Unspecified hypothyroidism Swelling Localized superficial swelling, mass, or lump Weight gain Other symptoms concerning nutrition, metabolism, and development Hypothyroidism, unspecified type documented in this encounter Additional Health Concerns Assessment Noted Time PHQ-9 Depression Total Score: 2 06/09/19 25 8:21 AM EST A fall risk assessment has been complete d for the patient 10/20/2024 1:12 PM EDT A Body Mass Index follow-up plan has been documented for the patient 10/26/2024 1:05 AM EDT documented as of this encounter Care Teams Validation Manager Relationship Specialty Start Date End Date Cory Sandhu MD [address] [place] [address] PCP - General 01/24/21 Skyler Márquze MD [address] [facility], [place] [id number] Referring Physician 03/12/21 Farooq Lacey MD [address] [facility], [place] [address] Resident Neurology 05/01/21 documented as of this encounter
--- OUTSIDE RECORDS SUMMARY | 2024-10-27 11:47 | XMS_ITS | Encounter Summary ---
Author Organization Healthcare Address [address] [place] [address] Care Team Providers Care Qual Field Manager Name Role Phone Cory Sandhu MD Primary Care Provider [phone] Skyler Márquez MD Unavailable [phone] Farooq Lacey MD Unavailable Unavailable Encounter Details Date Type Department Care Team (Latest Contact Info) Description 10/20/2024 Travel Social History Tobacco Use Types Packs/Day Years [...] place to sleep or slept in a mcfp (including now)? No 03/24/2024 PHQ-9 Answer Date [...] drink first t fortino in the morning (EYE-AUTO TUNE UP MECHANIC) to steady your nerves or to get [...] Jia Dunbar documented as of this encounter Plan of Treatment Upcoming Encounters Date Type Department Care Team (Late st Contact Info) Description 11/18/2024 9:30 AM EDT Office Visit [facility] Medicine Specialties [address], [address]nd [place] [address] Guilherme Nicole MD [address] [place] [address] 11/23/2024 12:30 PM EDT Clinical Support [facility] Laboratory Services [address] [facility], 1st [place] [address] 12/07/2024 10:15 AM EDT Office Visit [facility] Bone & Mineral Metabolism [address] [facility] [address] [facility], [address] [place] [address] Martinez Panda MD [address] [facility] [address] [place] [address] 02/21/2025 1:20 PM EDT Office Visit [facility] Specialty Care Clinic [address], [address] [place] [address] Edu Allen MD [address] [place] [address] [address] [place] [address] 03/16/2025 9:50 AM EDT Office Visit [facility] Orthopaedic Surgery & Sports Medicine [address], 1st [address] [place] [address] Erik Marin MD [address] [place] [address] 10/26/2025 9:00 AM EDT Office Visit [facility] [address] [place] [address] Jabari Ballard MD [address] [place] [address] documented as of this encounter Visit Diagnoses Not on filedocumented in this encounter Additional Health Concerns Assessment Noted Time PHQ-9 Depression Total Score: 2 06/09/19 25 8:21 AM EST A fall risk assessment has been complete d for the patient 10/20/2024 1:12 PM EDT A Body Mass Index follow-up plan has been documented for the patient 10/26/2024 1:05 AM EDT documented as of this encounter Care Teams Qual Field Manager Relationship Specialty Start Date End Date Cory Sandhu MD [address] [place] [address] PCP - General 01/24/21 Skyler Márquez MD [address] [facility], [place] [address] Referring Physician 03/12/21 Farooq Lacey MD [address] [facility], [place] [address] Resident Neurology 05/01/21 documented as of this encounter
--- OUTSIDE RECORDS SUMMARY | 2024-10-27 11:47 | XMS_ITS | Referral Summary ---
Author Organization [employer] Address [address] [place] [address] Care Team Providers Care Technology Auditor Name Role Phone Flornece Goodman MD Primary Care Provider [phone] Encounters Date Type Department Care Team Description 10/21/2024 Outside Orders [facility] [address] [place] [address] Florence Goodman MD Myalgia (Primary Dx); Paresthesia and pain of extremity; Sicca syndrome (HCC); Small fiber neuropathy; Sarcoidosis; History of epidural anesthesia from Last 3 Months Social History Tobacco Use Types Packs/Day Years Used Date Smoking Tobacco: Never Assessed Comments Unknown Sex and Gender Information Value Date Recorded Sex Assigned at Not on file Legal Sex Female 3:21 PM CDT Gender Identity Not on file Sexual Orientation Not on file Plan of Treatment Upcoming Encounters Date Type Department Care Team (Late st Contact Info) Description 01/06/2025 9:00 AM EDT Office Visit [facility] Neurology - [facility] [address] [place] [address] Sonya Gupta MD [address] [place] [address] Insurance BLUE CROSS/BLUE SHIELD Care Teams Technology Auditor Relationship Specialty Start Date End Date Florence Goodman MD [address] [facility] [address] [place] [address] PCP - General Rheumatology 10/21/24
--- OUTSIDE RECORDS SUMMARY | 2024-10-27 11:47 | XMS_ITS | Clinical Summary ---
Author Organization [employer] Address [address] [place] [address] Care Team Providers Care Art Instructor Name Role Phone Florence Godoman MD Primary Care Provider [phone] Encounters Date Type Department Care Team Description 10/21/2024 Outside Orders [facility] Neurology - [facility] [address] [place] [address] Florence Goodman MD Myalgia (Primary [...] Description 01/06/2025 9:00 AM EDT Office Visit [facility] Neurology - [facility] [address] [place] [address] Sonya Gupta MD [address] [place] [address] Health Maintenance Due Date Last Done Comments CT Colonography 1977 Colonoscopy 1977 Colorectal Cancer Screening 1977 FOBT/FIT 1977 Fit-DNA (Cologuard) 1977 Sigmoidoscopy 1977 Depression Screening (12+) 1989 Tobacco Cessation Counseling and Screening (12+) 1989 HIV Screening 01/16/1992 Hepatitis C Screening 1995 DTAP/TDAP/TD VACCINES (1 - Tdap) 01/16/1996 Pap Smear 1998 Breast Cancer Screening 02/20/2020 02/20/20 18, 02/19/2018, 01/09/2018 COVID-19 VACCINE (1 - 2023-2 5 season) 2024 Influenza Vaccine (Season Ended) 2025 Lipid Panel 10/08/2029 10/08/2024 Pneumococcal Vaccine: 0-49 Years Aged Out No longer eligible b ased on patient's age to complete this topic Insurance BLUE CROSS/BLUE SHIELD Care Teams Art Instructor Relationship Specialty Start Date End Date Florence Goodman MD [address] [facility] [address] [place] [address] PCP - General Rheumatology 10/21/24
--- OUTSIDE RECORDS SUMMARY | 2024-10-27 11:47 | XMS_ITS | Encounter Summary ---
Author Organization Healthcare Address [address] [place] [address] Care Team Providers Care Film And Video Editor Name Role Phone Cory Sandhu MD Primary Care Provider [phone] Skyler Márquez MD Unavailable [phone] Farooq Lacey MD Unavailable Unavailable Reason for Referral * Consultation (Routine) - Authorized Specialty Diagnoses / Procedures Referred By Contrenetta t Referred To Contact Gastroenterology Diagnoses Celiac disease Edu Allen MD [address] [facility] [address] [place] [address] Phone: tel: fax: Referral ID Status Reason Start Date Expiration Date Visits Requested Visits Authorized [id number] Authorized Specialty Services Required 10/25/2024 04/26/2026 1 1 Scheduling Instructions Qamar Smith at [address] [facility] [address] [place] [address] Encounter Details Date Type Department Care Team (Late st Contact Info) Description 10/20/2024 Results Follow-Up [facility] [address] [place] [address] Edu Allen MD [address] [facility] [place] [address] [place] [address] Social History Tobacco Use Types Packs/Day Years [...] place to sleep or slept in a fpc (including now)? No 03/24/2024 PHQ-9 Answer Date [...] drink first t fortino in the morning (EYE-GUN WELDER) to steady your nerves or to get rid of a hangover? 0 03/21/2024 CAGE Questionnaire Score 0 024 Utilities Answer Date Recorded In the past 12 months has [employer], gas, oil, or water [employer] threatened to shut off services in your [...] as of this encounter Miscellaneous Notes * Addendum Note - Edu Allen MD - 10/26/2024 11:49 AM EDTAddended by: EDU ALLEN on: 10/26/2024 11:49 AM Modules accepted: Orders * Telephone Encounter - Agustina Nicole RN - 10/26/2024 10:11 AM EDT This question has been forwarded to Dr. Allen in a different thread. documented in this encounter Plan of Treatment Upcoming Encounters Date Type Department Care Team (Late st Contact Info) Description 11/18/2024 9:30 AM EDT Office Visit [facility] Medicine Specialties [address], [address] [place] [address] Guilherme Nicole MD [address] [facility] [address] [place] [address] 11/23/2024 12:30 PM EDT Clinical Support [facility] Laboratory Services [address] [facility], 1st [place] [address] 12/07/2024 10:15 AM EDT Office Visit [facility] Bone & Mineral Metabolism [address] [facility], [address] [place] [address] Martinez Panda MD [address] [facility] [address] [place] [address] 02/21/2025 1:20 PM EDT Office Visit [facility] Specialty Care Clinic [address], [address] [place] [address] Edu Allen MD [address] [facility] [address] [place] [address] 03/16/2025 9:50 AM EDT Office Visit [facility] Orthopaedic Surgery & Sports Medicine [address], 1[address] Floor [address] [place] [address] Erik Marin MD [address] [facility] [address] [place] [address] 10/26/2025 9:00 AM EDT Office Visit [facility] [address] [place] [address] Jabari Ballard MD [address] [facility] [address] [place] [address] Scheduled Referrals Name Type Priority Associated Diagnoses Order Schedule Ambulatory referral to Gastroenterology Outpatient Referral Routine Celiac disease 1 Occurrences starting 10/26/2024 until 04/28/2026 documented as of this encounter Visit Diagnoses Diagnosis Celiac disease documented in this encounter Additional Health Concerns Assessment Noted Time PHQ-9 Depression Total Score: 2 06/09/19 25 8:21 AM EST A fall risk assessment has been complete d for the patient 10/20/2024 1:12 PM EDT A Body Mass Index follow-up plan has been documented for the patient 10/26/2024 1:05 AM EDT documented as of this encounter Care Teams Film And Video Editor Relationship Specialty Start Date End Date Cory Sandhu MD [address] [place] [address] PCP - General 01/24/21 Skyler Márquez MD [address] [facility], [place] [address] Referring Physician 03/12/21 Farooq Lacey MD [address] [facility], [place] [address] Resident Neurology 05/01/21 documented as of this encounter
--- OUTSIDE RECORDS SUMMARY | 2024-10-27 11:47 | XMS_ITS | Encounter Summary ---
Author Organization Healthcare Address [address] [place] [address] Care Team Providers Care Manager Sas Name Role Phone Cory Sandhu MD Primary Care Provider [phone] Skyler Márquez MD Unavailable [phone] Farooq Lacey MD Unavailable Unavailable Encounter Details Date Type Department Care Team (Late st Contact Info) Description 10/25/2024 Results Follow-Up [facility] [address], [address] [place] [address] [place] [address] [place] [address] [address] [place] [address] Social History Tobacco Use Types [...] place to sleep or slept in a correction (including now)? No 03/24/2024 PHQ-9 Answer Date [...] drink first t fortino in the morning (EYE-SECURITY ENGINEER) to steady your nerves or to get rid of a hangover? 0 03/21/2024 CAGE Questionnaire Score 0 024 Utilities Answer Date Recorded In the past 12 months has th e electric, gas, oil, or water [employer] threatened to shut off services in your [...] on file documented as of this encounter Plan of Treatment Upcoming Encounters Date Type Department Care Team (Late st Contact Info) Description 11/18/2024 9:30 AM EDT Office Visit [facility] Medicine Specialties [address], 2[address] [place] [address] Guilherme Nicole MD [address] [facility] [address] [place] [address] 11/23/2024 12:30 PM EDT Clinical Support [facility] Laboratory Services [address] [facility], 1st [place] [address] 12/07/2024 10:15 AM EDT Office Visit [facility] Bone & Mineral Metabolism [address] [facility], [address] [place] [address] Martinez Panda MD [address] [facility] [address] [place] [address] 02/21/2025 1:20 PM EDT Office Visit [facility] Specialty Care Clinic [address], [address] [place] [address] Edu Allen MD [address] [facility] [address] [place] [address] 03/16/2025 9:50 AM EDT Office Visit [facility] Orthopaedic Surgery & Sports Medicine [address], 1[address] [place] [address] Erik Marin MD [address] [place] [address] 10/26/2025 9:00 AM EDT Office Visit [facility] [address] [place] [address] Jabari Ballard MD [address] [place] [address] documented as of this encounter [...] documented as of this encounter Care Teams Manager Sas Relationship Specialty Start Date End Date Cory Sandhu MD [address] [place] [address] PCP - General 01/24/21 Skyler Márquez MD [address] [place] [address] Referring Physician 03/12/21 Farooq Lacey MD [address], [place] [address] Resident Neurology 05/01/21 documented as of this encounter
--- OUTSIDE RECORDS SUMMARY | 2024-10-27 11:47 | XMS_ITS | Encounter Summary ---
Author Organization Healthcare Address [address] [place] [address] Care Team Providers Care Green Ware Caster Name Role Phone Cory Sandhu MD Primary Care Provider [phone] Skyler Márquez MD Unavailable [phone] Farooq Lacey MD Unavailable Unavailable Encounter Details Date Type Department Care Team (Late st Contact Info) Description 10/25/2024 Telephone [facility] Endocrinology [address] [place] [address] Edu Allen MD 2195 [facility] 125 [place] [address] Social History Tobacco Use Types [...] drink first t fortino in the morning (EYE-CHURCH ORGANIST) to steady your nerves or to get rid of a hangover? 0 03/21/2024 CAGE Questionnaire Score 0 024 Utilities Answer Date Recorded In the past 12 months has th e electric, gas, oil, or water [employer] threatened to shut off services in your [...] on file documented as of this encounter Miscellaneous Notes * Telephone Encounter - Yoanna Ramírez - 10/25/2024 9:23 AM EDT Clinical Concern/Question Reason for Call: patient calling would like to see if provider can call her about labs and possibleceliac today/ she will be at a appointment with her son at [facility] 10-11:30 she wont be available but anytime before or after if she could please get a call abe Best contact number: Other: [phone] Optimal time of day to reach caller: ANYTIME Additional comments/information from caller: None Note: Please do not reply to this message. Follow-up communication and further actions as a result of this message need to be communicated with the patient directly, if the patient is not active onMyChart. If the patient is active on MyChart, they will receive notification of the communication/outcome via Heart Metabolicst. documented in this encounter Plan of Treatment Upcoming Encounters Date Type Department Care Team (Late st Contact Info) Description 11/18/2024 9:30 AM EDT Office Visit [facility] Medicine Specialties [address], [address]nd [place] [address] Guilherme Nicole MD [address] [place] [address] 11/23/2024 12:30 PM EDT Clinical Support [facility] Laboratory Services [address] [facility], 1st [place] [address] 12/07/2024 10:15 AM EDT Office Visit [facility] Bone & Mineral Metabolism [address] [facility], [address] [place] [address] Martinez Panda MD [address] [facility] [address] [place] [address] 02/21/2025 1:20 PM EDT Office Visit [facility] Specialty Care Clinic [address], [address] [place] [address] Edu Allen MD [address] [facility] [address] [place] [address] 03/16/2025 9:50 AM EDT Office Visit [facility] Orthopaedic Surgery & Sports Medicine [address], 1[address] Floor [address] [place] [address] Erik Marin MD [address] [place] [address] 10/26/2025 9:00 AM EDT Office Visit [facility]ne[facility] [address] [place] [address] Jabari Ballard MD [address] [facility] [address] [place] [address] documented as of this encounter Visit Diagnoses Diagnosis Celiac disease- Primary documented in this encounter Additional Health Concerns Assessment Noted Time PHQ-9 Depression Total Score: 2 06/09/19 25 8:21 AM EST A fall risk assessment has been complete d for the patient 10/20/2024 1:12 PM EDT A Body Mass Index follow-up plan has been documented for the patient 10/26/2024 1:05 AM EDT documented as of this encounter Care Teams Green Ware Caster Relationship Specialty Start Date End Date Cory Sandhu MD [address] [place] [address] PCP - General 01/24/21 Skyler Márquez MD [address]0 [facility], [place] [address] Referring Physician 03/12/21 Farooq Lacey MD [address] [facility], [place] [address] Resident Neurology 05/01/21 documented as of this encounter
--- OUTSIDE RECORDS SUMMARY | 2024-10-27 11:47 | XMS_ITS | Encounter Summary ---
Author Organization Healthcare Address [address] [place] [address] Care Team Providers Care Balance Wheel Facer Name Role Phone Cory Sandhu MD Primary Care Provider [phone] Skyler Márquez MD Unavailable [phone] Farooq Lacey MD Unavailable Unavailable Encounter Details Date Type Department Care Team (Late st Contact Info) Description 10/21/2024 Results Follow-Up [facility] [address] [facility] [address] [place] [address] Jabari Ballard MD [address] [facility] [address] [place] [address] Social History Tobacco Use Types Packs/Day Years [...] place to sleep or slept in a penitentiary (including now)? No 03/24/2024 PHQ-9 Answer Date [...] drink first t fortino in the morning (EYE-TEA AND SPICE SUPERVISOR) to steady your nerves or to get rid of a hangover? 0 03/21/2024 CAGE Questionnaire Score 0 11/03/2 024 Utilities Answer Date Recorded In the [...] Description 11/18/2024 9:30 AM EDT Office Visit [facility] Medicine Specialties [address], [address]nd [place] [address] Guilherme Nicole MD [address] [facility] [address] [place] [address] 11/23/2024 12:30 PM EDT Clinical Support [facility] Laboratory Services [address] [facility], 1st [place] [address] 12/07/2024 10:15 AM EDT Office Visit [facility] Bone & Mineral Metabolism [address] [facility], [address] [place] [address] Martinez Panda MD [address] [facility] [address] [place] [address] 02/21/2025 1:20 PM EDT Office Visit [facility] Specialty Care Clinic [address] [address] [place] [address] Edu Allen MD 2[address] [facility] 125 [place] [address] 03/16/2025 9:50 AM EDT Office Visit [facility] Orthopaedic Surgery & Sports Medicine [address], 1[address] Floor [address] [place] [address] Erik Marin MD [address] [place] [address] 10/26/2025 9:00 AM EDT Office Visit [facility] [address] [place] [address] Jabari Ballard MD [address] [place] [address] documented as of this encounter [...] documented as of this encounter Care Teams Balance Wheel Facer Relationship Specialty Start Date End Date Cory Sandhu MD [address] [place] [address] PCP - General 01/24/21 Skyler Márquez MD [address] [place] [address] Referring Physician 03/12/21 Farooq Lacey MD [address], [place] [address] Resident Neurology 05/01/21 documented as of this encounter
--- OUTSIDE RECORDS SUMMARY | 2024-10-27 11:47 | XMS_ITS | Encounter Summary ---
Author Organization Healthcare Address [address] [place] [address] Care Team Providers Care Farm Management Supervisor Name Role Phone Cory Sandhu MD Primary Care Provider [phone] Skyler Márquez MD Unavailable [phone] Farooq Lacey MD Unavailable Unavailable Encounter Details Date Type Department Care Team (Late st Contact Info) Description 10/26/2024 Telephone [facility] Endocrinology [address] [place] [address] Edu Allen MD 2195 [facility] 125 [place] [address] Social History Tobacco Use Types [...] place to sleep or slept in a care home (including now)? No 03/24/2024 PHQ-9 Answer Date [...] drink first t fortino in the morning (EYE-PARCEL CARRIER) to steady your nerves or to get rid of a hangover? 0 03/21/2024 CAGE Questionnaire Score 0 024 Utilities Answer Date Recorded In the past 12 months has th e [employer], gas, oil, or water [employer] threatened to shut off services in your [...] encounter Miscellaneous Notes * Telephone Encounter - Agustina Nicole RN - 10/26/2024 12:51 PM EDT MCM has been sent to patient. Referral has been faxed and confirmation received. * Telephone Encounter - Agustina Nicole RN - 10/26/2024 9:37 AM EDT Patient is requesting that GI referral be sent outside of . * Telephone Encounter - Paige Mantilla - 10/26/2024 9:29 AM EDT Patient Phone Message Reason for Call: Pt is asking if her GI referral can be sent to a previous GI provider that she hasseen. Dr. Qamar Smith fax [phone] Best contact number and optimal time of day to reach caller: [phone] Note: Please do not reply to this message. Follow-up communication and further actions as a result of this message need to be communicated with the patient directly, if the patient is not active onMyChart. If the patient is active on MyChart, they will receive notification of the communication/outcome via MyChart. documented in this encounter Plan of Treatment Upcoming Encounters Date Type Department Care Team (Brie Contact Info) Description 11/18/2024 9:30 AM EDT Office Visit [facility] Medicine Specialties [address], [address]nd [place] [address] Guilherme Nicole MD [address] [place] [address] 11/23/2024 12:30 PM EDT Clinical Support [facility] Laboratory Services [address] [facility], 1st [place] [address] 12/07/2024 10:15 AM EDT Office Visit [facility] Bone & Mineral Metabolism [address] [facility], [address] [place] [address] Martinez Panda MD [address] [facility] [address] [place] [address] 02/21/2025 1:20 PM EDT Office Visit [facility] Specialty Care Clinic [address], [address] [place] [address] Edu Allen MD [address] [facility] [address] [place] [address] 03/16/2025 9:50 AM EDT Office Visit [facility] Orthopaedic Surgery & Sports Medicine [address], 1[address] Floor [address] [place] [address] Erik Marin MD [address] [place] [address] 10/26/2025 9:00 AM EDT Office Visit [facility] [address] [facility] [address] [place] [address] Jabari Ballard MD [address] [facility] [address] [facility] [address] [place] [address] documented as of this encounter [...] documented as of this encounter Care Teams Farm Management Supervisor Relationship Specialty Start Date End Date Cory Sandhu MD [address] [place] [address] PCP - General 01/24/21 Skyler Márquez MD [address] [place] [address] Referring Physician 03/12/21 Farooq Lacey MD [address] [place] [address] Resident Neurology 05/01/21 documented as of this encounter
--- OUTSIDE RECORDS SUMMARY | 2024-10-27 11:48 | XMS_ITS | Encounter Summary ---
Author Organization Healthcare Address [address] [place] [address] Care Team Providers Care Entry Level Web Developer Name Role Phone Cory Sandhu MD Primary Care Provider [phone] Skyler Márquez MD Unavailable Farooq Lacey MD Unavailable Unavailable Reason for Referral * Consultation (Routine) - Authorized Specialty Diagnoses / Procedures Referred By Contrenetta t Referred To Contact Plastic Surgery Diagnoses Chest wall pain Cory Sandhu MD [address] [place] [address] Phone: tel: fax: Referral ID Status Reason Start Date Expiration Date Visits Requested Visits Authorized [id number] Authorized Specialty Services Required 4 10/29/2025 1 1 Encounter Details Date Type Department Care Team (Late st Contact Info) Description 04/29/2024 Community [facility] Community Practice [address] [place] [address] Cory Sandhu MD [address] [place] [address] Chest wall pain (Primary Dx) Social History Tobacco Use Types Packs/Day Years Used Date Smoking Tobacco: Never Passive Smoke Exposure: Never Smokeless Tobacco: Never Alcohol Use Standard Drinks/Week Comments Yes 1 (1 standard drink = 0.6 oz pur [...] Date Recorded Patient Health Questionnaire-2 Score 0 04/08/2024 Hunger Vital Sign Answer Date Recorded Within [...] place to sleep or slept in a group home (including now)? No 03/24/2024 PHQ-9 Answer Date Recorded Patient Health Questionnaire-9 Score 0 04/08/2024 CAGE ASSESSMENT Answer Date Recorded Cage unable [...] drink first t fortino in the morning (EYE-HOSPICE MANAGER) to steady your nerves or to get rid of a hangover? 0 03/21/2024 CAGE Questionnaire Score 0 024 Utilities Answer Date Recorded In the past 12 months has th e [employer], gas, oil, or water [employer] threatened to shut off services in your [...] Description 11/18/2024 9:30 AM EDT [facility] Medicine Specialties [address], [address] [place] [address] Guilherme Nicole MD [address] [place] [address] 11/23/2024 12:30 PM EDT Clinical Support [facility] Laboratory Services [address], 1st [place] [address] 12/07/2024 10:15 AM EDT Office Visit [facility] Bone & Mineral Metabolism [address], [address] [place] [address] Martinez Panda MD [address] [place] [address] 02/21/2025 1:20 PM EDT Office Visit [facility] Specialty Care Clinic [address], [address] [place] [address] Edu Allen MD [address] [facility] [address] [place] [address] 03/16/2025 9:50 AM EDT Office Visit [facility] Orthopaedic Surgery & Sports Medicine [address], 1[address] [place] [address] Erik Marin MD [address] [place] [address] 10/26/2025 9:00 AM EDT Office Visit [facility] [address] [place] [address] Jabari Ballard MD [address] [facility] [address] [place] [address] Scheduled Referrals Name Type Priority Associated Diagnoses Order Schedule Ambulatory Referral to Plastic Surgery Outpatient Referral Routine Chest wall pain Expected: 04/29/2024 (Approximate), Expires: 10/28/2025 documented as of this encounter Visit Diagnoses Diagnosis Chest wall pain- Primary Painful respiration documented in this encounter Additional Health Concerns Assessment Noted Time PHQ-9 Depression Total Score: 0 04/08/20 24 1:32 PM EST A fall risk assessment has been complete d for the patient 04/29/2024 8:07 AM EST A Body Mass Index follow-up plan has been documented for the patient 05/09/2024 11:47 PM EST documented as of this encounter Care Teams Entry Level Web Developer Relationship Specialty Start Date End Date Cory Sandhu MD [address] [place] [address] PCP - General 01/24/21 Skyler Márquez MD [address] [place] [address] Referring Physician 03/12/21 Farooq Lacey MD [address] [place] [address] Resident Neurology 05/01/21 documented as of this encounter
--- OUTSIDE RECORDS SUMMARY | 2024-10-27 11:48 | XMS_ITS ---
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 D, calcium supplementation -labs ordered -f/u in bone clinic Melanoma in situ of left lower leg 03/16/2024 Pain in finger of left hand 11/19/2023 Sensation of lump in throat 09/24/2023 Chronic central neuropathic pain 05/14/2023 History of total hysterectomy 04/04/2021 Monoallelic mutation of PALB2 gene 01/24/2021 Overview (10/20/2024): 49 y.o. female with a strong family history of breast cancer who has a PALB2 mutation S/P prophylactic TAHBSO on 04/04/2021 Path - benign Normal breast and HAIRCUTTER exam today - CA125 today - f/u annually for pelvic and breast exam - ongoing health issues - f/u with ortho, rheumatology, endocrinology, bone mineral clinics Vaso-vagal reaction 12/18/2018 Inappropriate sinus tachycardia 12/18/2018 FHx: mastectomy 12/04/2018 Fatigue 12/05/2015 POTS (postural orthostatic tachycardia syndrome) Overview (03/29/2021): following surgery Hypothyroidism Overview (03/22/2024): Home Liothyronine Home levothyroxine Esophageal dilatation Delayed emergence from anesthesia PONV (postoperative nausea and vomiting) Esophageal spasm Overview (03/29/2021): multiple esophageal dilations Gastroesophageal reflux disease Current Treatment and Therapy Plans No current plan information found. Other Current Plans Line Care (Peripheral)* Plan Start Date:06/04/2024 Plan Provider:Martinez Panda MD Linked Problems Age-related osteoporosis wit h current pathological fracture, initial encounter Treatment Medications No medications scheduled. Past Treatment and Therapy Plans Lifetime Dose Tracking * Chemical Lifetime Dose Automatic Entry Manual Entr y Fluoro Time 2.467 minutes 2.467 minutes 0 minutes Air Kerma 13.7 mGy 13.7 mGy 0 mGy Resolved Problems Problem Noted Date Diagnosed Date Resolved Date Postoperative fever 04/10/2021 04/10/20 21
--- OUTSIDE RECORDS SUMMARY | 2024-10-27 11:48 | XMS_ITS | Encounter Summary ---
Author Organization Healthcare Address [address] [place] [address] Care Team Providers Care Rail Car Operator Name Role Phone Cory Sandhu MD Primary Care Provider [phone] Skyler Márquez MD Unavailable [phone] Farooq Lacey MD Unavailable Unavailable Reason for Visit * Reason Comments Med Refill Encounter Details Date Type Department Care Team (Late st Contact Info) Description 10/06/2024 Refill [facility] Orthopaedic Surgery & Sports Medicine [address], 1st [address] [place] [address] Florence Ambriz PA [address] [place] [address] Social History Tobacco Use Types Packs/Day Years [...] place to sleep or slept in a jail (including now)? No 03/24/2024 PHQ-9 Answer Date [...] drink first t fortino in the morning (EYE-ASSET MANAGEMENT COORDINATOR) to steady your nerves or to get [...] Description 11/18/2024 9:30 AM EDT Office Visit [facility] Medicine Specialties [address], 2nd [place] [address] Guilherme Nicole MD [address] [facility] [address] [place] [address] 11/23/2024 12:30 PM EDT Clinical Support [facility] Laboratory Services [address] [facility], 1st [place] [address] 12/07/2024 10:15 AM EDT Office Visit [facility] Bone & Mineral Metabolism [address] [facility], [address] [place] [address] Martinez Panda MD [address] [facility] [address] [place] [address] 02/21/2025 1:20 PM EDT Office Visit [facility] Specialty Care Clinic [address], [address] [place] [address] Edu Allen MD [address] [facility] [address] [place] [address] 03/16/2025 9:50 AM EDT Office Visit [facility] Orthopaedic Surgery & Sports Medicine [address], 1[address] [place] [address] Erik Marin MD [address] [place] [address] 10/26/2025 9:00 AM EDT Office Visit [facility] [address] [place] [address] Jabari Ballard MD [address] [place] [address] documented as of this encounter [...] documented as of this encounter Care Teams Rail Car Operator Relationship Specialty Start Date End Date Cory Sandhu MD [address] [place] [address] PCP - General 01/24/21 Skyler Márquez MD [address], [place] [address] Referring Physician 03/12/21 Farooq Lacey MD [address], [place] [address] Resident Neurology 05/01/21 documented as of this encounter
--- OUTSIDE RECORDS SUMMARY | 2024-10-27 11:48 | XMS_ITS | Encounter Summary ---
Author Organization Healthcare Address [address] [place] [address] Care Team Providers Care Pyrotechnic Mixer Name Role Phone Cory Sandhu MD Primary Care Provider [phone] Skyler Márquez MD Unavailable [phone] Farooq Lacey MD Unavailable Unavailable Reason for Visit * Reason Comments Med Refill Encounter Details Date Type Department Care Team (Late st Contact Info) Description 07/10/[address] [facility] Orthopaedic Surgery & Sports Medicine [address], 1st [address] [place] [address] Yaquelin Palomo MD [address] [place] [id number] Social History Tobacco Use Types Packs/Day Years [...] place to sleep or slept in a long-term (including now)? No 03/24/2024 PHQ-9 Answer Date [...] drink first t fortino in the morning (EYE-TOBACCO WAREHOUSE AGENT) to steady your nerves or to get [...] 9:30 AM EDT Office Visit [facility] Medicine Specialties [address], [address] [place] [address] Guilherme Nicole MD [address] [facility] [address] [place] [address] 11/23/2024 12:30 PM EDT Clinical Support [facility] Laboratory Services [address] [facility], 1st [place] [address] 12/07/2024 10:15 AM EDT Office Visit [facility] Bone & Mineral Metabolism [address] [facility], [address] [place] [address] Martinez Panda MD [address] [facility] [address] [place] [address] 02/21/2025 1:20 PM EDT Office Visit [facility] Specialty Care Clinic [address] [facility] [address] [place] [address] Edu Allen MD [address] [facility] [address] [place] [address] 03/16/2025 9:50 AM EDT Office Visit [facility] Orthopaedic Surgery & Sports Medicine [address], 1[address] Floor [address] [place] [address] Erik Marin MD [address] [place] [address] 10/26/2025 9:00 AM EDT Office Visit [facility] [address] [place] [address] Jabari Ballard MD [address] [place] [address] documented as of this encounter Visit Diagnoses Not on filedocumented in this encounter Additional Health Concerns Assessment Noted Time PHQ-9 Depression Total Score: 2 06/09/19 25 8:21 AM EST A fall risk assessment has been complete d for the patient 06/16/2024 10:51 AM EST A Body Mass Index follow-up plan has been documented for the patient 06/17/2024 9:01 AM EST documented as of this encounter Care Teams Pyrotechnic Mixer Relationship Specialty Start Date End Date Cory Sandhu MD [facility] [place] [address] PCP - General 01/24/21 Skyler Márquez MD [address], [place] [address] Referring Physician 03/12/21 Farooq Lacey MD [address], [place] [address] Resident Neurology 05/01/21 documented as of this encounter
--- OUTSIDE RECORDS SUMMARY | 2024-10-27 11:48 | XMS_ITS | Encounter Summary ---
Author Organization [facility] Address [address] [place] [address] Care Team Providers Care Optical Glass Wet Inspector Name Role Phone Florence Goodman MD Primary Care Provider [phone] Reason for Referral * Consultation (Routine) - Authorized Specialty Diagnoses / Procedures Referred By Dennis vega Referred To Contact Neurology Diagnoses Myalgia Paresthesia and pain of extremity Sicca syndrome (HCC) Small fiber neuropathy Sarcoidosis History of epidural anesthesia New Patient - Myalgia, Paresthesia, Sicca Syndrome, Potential Small Fiber Neuropathy, Systemic Sarcoidosis (nerve biopsy goal for appt), Hx Epidural Anesthesia Procedures Scheduled Florence Goodman MD [address] [facility] [address] [place] [address] Phone: tel: fax: Sonya Gupta MD [address] [facility] [address] [place] [address] Phone: tel: fax: Referral ID Status Reason Start Date Expiration Date Visits Requested Visits Authorized [id number] Authorized Specialty Services Required 10/21/2024 10/21/2025 1 1 Encounter Details Date Type Department Care Team (Late st Contact Info) Description 10/21/2024 Outside Orders [facility] Neurology - [facility] [address] [place] [address] [address] [place] [address] Florence Goodman MD [address] [facility] [address] [place] [address] Myalgia (Primary Dx); Paresthesia and pain of extremity; Sicca syndrome (HCC); Small fiber neuropathy; Sarcoidosis; History of epidural anesthesia Social History Tobacco Use Types Packs/Day Years Used Date Smoking Tobacco: Never Assessed Comments Unknown Sex and Gender Information Value Date Recorded Sex Assigned at Not on file Legal Sex Female 3:21 PM CDT Gender Identity Not on file Sexual Orientation Not on file documented as of this encounter Plan of Treatment Upcoming Encounters Date Type Department Care Team (Late st Contact Info) Description 01/06/2025 9:00 AM EDT Office Visit [facility] Neurology - [facility] [address] [facility] [address] [place] [id number] Sonya Gupta MD [address] [facility] [address] [place] [address] Scheduled Referrals Name Type Priority Associated Diagnoses Order Schedule Ambulatory referral to Neurology Outpatient Referral Routine Myalgia Paresthesia and pain of extremity Sicca syndrome (HCC) Small fiber neuropathy Sarcoidosis History of epidural anesthesia Ordered: 10/21/2024 documented as of this encounter Visit Diagnoses Diagnosis Myalgia- Primary Unspecified myalgia and myositis Paresthesia and pain of extremity Sicca syndrome (HCC) Sicca syndrome Small fiber neuropathy Sarcoidosis History of epidural anesthesia documented in this encounter Care Teams Optical Glass Wet Inspector Relationship Specialty Start Date End Date Florence Goodman MD [address] [facility] [address] [place] [address] PCP - General Rheumatology 10/21/24 documented as of this encounter
--- OUTSIDE RECORDS SUMMARY | 2024-10-27 11:48 | XMS_ITS | Encounter Summary ---
Author Organization Healthcare Address [address] [place] [address] Care Team Providers Care Scientific Laboratory Supervisor Name Role Phone Cory Sandhu MD Primary Care Provider [phone] Skyler Márquez MD Unavailable [phone] Farooq Lacey MD Unavailable Unavailable Encounter Details Date Type Department Care Team (Latest Contact Info) Description 09/15/2024 Travel Social History Tobacco Use Types Packs/Day [...] drink first t fortino in the morning ([employer] TEAM MEMBER) to steady your nerves or to get [...] [facility] Medicine Specialties [address] [place] [address] Guilherme Nicole MD [address] [facility] [address] [place] [address] 11/23/2024 12:30 PM EDT Clinical Support [facility] Laboratory Services [address] [facility] [place] [address] 12/07/2024 10:15 AM EDT Office Visit [facility] Mineral Metabolism [address] [facility], [address] [place] [phone] Martinez Panda MD [address] [facility] [address] [place] [phone] 02/21/2025 1:20 PM EDT Office Visit [facility] [address], [address] [place] [address] Edu Allen MD [address] [facility] [address] [place] [phone] 03/16/2025 9:50 AM EDT Office Visit [facility] Orthopaedic Surgery & Sports Medicine [address] [place] [address] Erik Marin MD [address] [facility] [address] [place] [address] 10/26/2025 9:00 AM EDT Office Visit [facility] [address] [place] [address] Jabari Ballard MD [address] [facility] [address] [place] [address] documented as of this encounter Visit Diagnoses [...] documented as of this encounter Care Teams Scientific Laboratory Supervisor Relationship Specialty Start Date End Date Cory Sandhu MD [address] [place] [address] PCP - General 01/24/21 Skyler Márquez MD [address] [facility], [place] [address] Referring Physician 03/12/21 Farooq Lacey MD [address] [facility], [place] [address] Resident Neurology 05/01/21 documented as of this encounter
--- OUTSIDE RECORDS SUMMARY | 2024-10-27 11:48 | XMS_ITS | Clinical Summary ---
Author Organization Healthcare Address [address] [place] [address] Care Team Providers Care Jackscrew Man Name Role Phone Cory Sandhu MD Primary Care Provider [phone] Skyler Márquez MD Unavailable [phone] Farooq Lacey MD Unavailable Unavailable Allergies Active Allergy Reactions Criticality Noted Date Comments Latex Dermatitis,Hives Medium 12/05/2015 Diclofenac Dermatitis Low 01/24/2021 Medications LORazepam (Ativan) 1 MG tablet Take 1 tablet (1 mg) by mouth at night if needed. For esophageal spasms Active busPIRone (Buspar) 10 MG tablet Take 1 tablet (10 mg) by mouth 2 (two) times a day. Active propranolol (Inderal) 10 MG tablet Take 1 tablet (10 mg) by mouth 2 (two) times a day. Active ondansetron ODT (Zofran-ODT) 4 MG disintegrating tablet Take 1 tablet (4 mg) by mouth every 6 (six) hours if needed for nausea or vomiting. 20 tablet Active cholecalciferol (Vitamin D-3) 50 MCG (1999) capsuleIndication s:Other osteoporosis without current pathological fracture Take 1 capsule (2,000 Units) by mouth 1 (one) time each day. Active Additional Information Patient taking differently:2,000 Units Oral2 times weekly, Reported on 10/20/2024 Probiotic Product (align) 4 MG capsule 1 capsule (4 mg). 024 Active Zoledronic Acid (RECLAST IV) Infuse into a venous catheter. Active magnesium, as gluconate, (Magonate) 500 (27 Mg) MG tablet Take 1 tablet (500 mg) by mouth 2 (two) times a day. Pt states she is taking 200mg Active cyclobenzaprine (Flexeril) 5 MG tablet TAKE 1-2 TABLETS BY MOUTH UP TO THREE TIMES PER DAY NEEDED FOR MUSCLE SPASMS 40 tablet 025 Active Additional Information Patient taking differently: As needed, TAKE 1-2 TABLETS BY MOUTH UP TO THREE TIMES PER DAY NEEDED FOR MUSCLE SPASMS, Reported on 10/20/2024 liothyronine (Cytomel) 5 MCG tabletIndications :Acquired hypothyroidism Please take 0.5 tablet in AM only. 45 tablet 1 025 Active Synthroid 75 MCG tabletIndications :Acquired hypothyroidism Take 1 tablet by mouth daily. 90 tablet 1 025 Active DULoxetine (Cymbalta) [address] capsule Take 1 capsule (30 mg) by mouth 1 (one) time each day. Do not crush or chew. 2024 Discontinued liothyronine (Cytomel) 5 MCG tabletIndications :Acquired hypothyroidism Please take 0.5 tablet in AM only. 30 tablet 2 025 2024 Discontinued(R eorder) Synthroid 75 MCG tabletIndications :Acquired hypothyroidism Take 1 tablet by mouth daily. 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 D, calcium supplementation -labs ordered [...] 04/04/2021 Path - benign Normal breast and RADIATION ONCOLOGIST exam today - CA125 today - f/u [...] (03/29/2021): multiple esophageal dilations Gastroesophageal reflux disease Resolved Problems Problem Noted Date Diagnosed Date Resolved Date Postoperative fever 04/10/2021 04/10/20 21 Encounters Date Type Department Care Team Description 10/26/2024 Telephone [facility] Endocrinology [address] [place] [address] Edu Allen MD 10/25/2024 Results Follow-Up [facility] [employer] [facility] [address] [place] [address] Edu Allen MD 10/25/2024 Telephone [facility] Endocrinology [address] [place] [address] Edu Allen MD 10/21/2024 Results Follow-Up [facility] Gynecology [address] [place] [address] Jabari Ballard MD 10/20/2024 2:40 PM EDT Clinical Support [facility] Laboratory Services [address], [address] [place] [address] Acquired hypothyroidism; Swelling; Weight gain; Hypothyroidism, unspecified type 10/20/2024 1:20 PM EDT Office Visit [facility] [address], [address] [place] [address] Edu Allen MD Acquired hypothyroidism (Primary Dx); Swelling; Weight gain; Other osteoporosis without current pathological fracture; Other fatigue 10/20/2024 9:15 AM EDT Office Visit [facility] Gynecology [address] [place] [address] Jabari Ballard MD Monoallelic mutation of PALB2 gene (Primary Dx) 10/20/2024 Results Follow-Up [facility] [address], [address] [place] [address] Edu Allen MD 10/20/2024 Travel 10/06/2024 Refill [facility] Orthopaedic Surgery & Sports Medicine [address], [address] [place] [address] Florence Ambriz PA 09/15/2024 9:50 AM EDT Office Visit [facility] Orthopaedic Surgery & Sports Medicine [address], [address] [place] [address] Erik Marin MD Closed fracture of neck of right femur, initial encounter (Primary Dx) 09/15/2024 9:00 AM EDT - 09/15/2024 11:59 PM EDT Hospital Encounter [facility] Radiology [address], [address] [place] [address] Closed fracture of neck of right femur, initial encounter Discharge Disposition: Home or Self Care 09/15/2024 Travel 08/11/2024 9:00 AM EDT Office Visit [facility] [address], [address] [place] [address] Edu Allen MD Hypothyroidism, unspecified type (Primary Dx); Acquired hypothyroidism; Other osteoporosis without current pathological fracture; Other fatigue 08/11/2024 Travel 08/09/2024 Results Follow-Up [facility] [address], [address] [place] [address] Edu Allen MD 08/09/2024 Travel 08/02/2024 Refill [facility] [address], [address] [place] [address] Edu Allen MD Acquired hypothyroidism from Last 3 Months Immunizations Immunization Administration Dates Next Due Influenza, injectable, quadr ivalent, preservative free, pediatric 04/03/2019 Family History Medical History Relation Name Comments Brain Tumor Father Prabhu Ponce Hypertension Father Prabhu Ponce Alzheimer's disease Father's Brother 1 Jamey Alzheimer's disease Father's Brother 2 Jonathan Diabetes Maternal Grandfather Ed Gordon Heart disease Maternal Grandfather Ed Gordon Hypertension Maternal Grandfather Ed Gordon Kidney disease Maternal Grandfather Ed Gordon Arthritis Maternal Grandmother Ratna Gordon COPD Maternal Grandmother Ratna Gordon Cancer Maternal Grandmother Ratna Gordon Heart disease Maternal Grandmother Ratna Gordon Ovarian cancer Maternal Grandmother Ratna Gordon Arthritis Mother Karla Ponce Breast cancer Mother Karla Ponce Cancer Mother Karla Ponce Hyperlipidemia Mother Karla Ponce Hypothyroidism Mother Karla Ponce Stroke Mother Karla Ponce Breast cancer Other COPD Paternal Grandfather Ktpalomo Ponce Dementia Paternal Grandfather Kt Ponce Vision loss Paternal Grandfather Kt Ponce Arthritis Paternal Grandmother Kadie Ponce COPD Paternal Grandmother Kadie Ponce Cancer Paternal Grandmother Kadie Ponce Hearing loss Paternal Grandmother Kadie Ponce Relation Name Status Comments Father Prabhu Ponce Alive Father's Brother 1 Jamey Alive Father's Brother 2 Jonathan Alive Maternal Grandfather Ed Gordon Alive Maternal Grandmother Ratna Gordon Mother Karlamatt Ponce Other Paternal Grandfather Ktpalomo Ponce Alive Paternal Grandmother Kadie Ponce Alive Social History Tobacco Use Types Packs/Day Years [...] to sleep or slept in a senior living (including now)? 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 0 03/21/2024 CAGE Questionnaire Score 0 024 Utilities Answer Date Recorded In the past 12 months has [employer], gas, oil, or water company threatened to [...] file Not on file Not on file Last Filed Vital Signs Vital Sign Reading Time Taken Comments Blood Pressure 113/75 10/20/2024 1:12 PM EDT Pulse 80 10/20/2024 1:12 PM EDT Temperature 36.7 C (98 F) 10/20/2024 1:12 PM EDT Respiratory Rate 16 10/20/2024 9:12 AM EDT Oxygen Saturation 100% 10/20/2024 1:12 PM EDT Inhaled Oxygen Concentration - - Weight 66.3 kg (146 lb 2.6 oz) 10/20/2024 1:12 P M EDT Height 175.3 cm (5' 9 ) 10/20/2024 1:12 PM EDT Body Mass Index 21.58 10/20/2024 1:12 PM EDT Plan of Treatment Upcoming Encounters Date Type Department Care Team (Late st Contact Info) Description 11/18/2024 9:30 AM EDT Office Visit [facility] Medicine Specialties [address], [address] [place] [address] Guilherme Nicole MD [address] [place] [address] 11/23/2024 12:30 PM EDT Clinical Support [facility] Laboratory Services [address] [facility], 1st [place] [address] 12/07/2024 10:15 AM EDT Office Visit [facility] Bone & Mineral Metabolism [address] [facility], [address] [place] [address] Martinez Panda MD [address] [facility] [address] [place] [address] 02/21/2025 1:20 PM EDT Office Visit [facility] [address], [address] [place] [address] Edu Allen MD [address] [facility] [address] [place] [address] 03/16/2025 9:50 AM EDT Office Visit [facility] Orthopaedic Surgery & Sports Medicine [address], [address] [place] [address] Erik Marin MD [address] [facility] [address] [place] [address] 10/26/2025 9:00 AM EDT Office Visit [facility] Gynecology [address] [place] [address] Jabari Ballard MD [address] [facility] [address] [place] [address] Health Maintenance Due Date Last Done Comments [facility]-/Child/Adol SDOH Screenings 1977 [facility]-DTaP,Tdap,and Td Vaccine s (1 - Tdap) 01/16/1996 [facility]-Hepatitis B Vaccines (1 of 3 - 19+ 3-dose series) 01/16/1996 [facility]-Pneumococcal Vaccine: Pediatrics (0 to 5 Years) and At-Risk Patients (6 to 49 Years) (1 of 2 - PCV) 01/16/1996 [facility]-Zoster Vaccines (1 of 2) 01/16/1996 [id number] Vaccine (3 - Moderna risk series) 07/19/2020 06/21/2020, 05/24/2020 CT Colonography 2022 Colonoscopy 2022 FIT-DNA 2022 FIT 2022 FOBT 2022 Sigmoidoscopy 2022 [facility]-Colorectal Cancer Screening 2022 [facility]- SDOH Screenings 09/21/2024 [facility]-Adult SDOH Screenings 09/21/2024 03/24/2024 [facility]-Influenza Vaccine (Seas[place] n Ended) 2025 04/03/2019 [facility]-Bone Density Scan 03/31/2025 03/31/2024 [facility]-Depression Screening 10/20/2025 025, 06/09/2024, 04/29/2024 [facility]-HIV Screening Completed 04/26/2021 [facility]-Hepatitis C Screening Completed 04/26/2021 HPV Vaccines Aged Out No longer eligi ble based on patient's age to complete this topic [facility]-HIB Vaccines Aged Out No longer e ligible based on patient's age to complete this topic [facility]-Hepatitis A Vaccines Aged Out No longer eligible based on patient's age to complete this topic [facility]-IPV Vaccines Aged Out No longer e ligible based on patient's age to complete this topic [facility]-Rotavirus Vaccines Aged Out No lo nger eligible based on patient's age to complete this topic Medical Devices Implanted Type Area Flame Channeler Device Identifier Shelf Expiration Date Model / Serial / Lot Breast Breast Bilateral: Breast Plate 1 Hole Fem Neck Sys - [id number] Implanted:Qty: 1 on 03/22/2024 by Erik Marin MD at [facility] Right: Hip Synthes [facility]-[id number] 02/15/2034 04.168.00 0S / / [id number] [place] Fem Neck Sys 90mm - [id number] Implanted:Qty: 1 on 03/22/2024 by Erik Marin MD at [facility] Right: Hip Synthes [facility]-[id number] 03/18/2032 04.168.29 0S / / [id number] Screw Antirotation Femoral Neck System 90mm - [id number] Implanted:Qty: 1 on 03/22/2024 by Erik Marin MD at [facility] Right: Hip Synthes [id number] 01/17/2032 04.168.49 0S / / [id number] Screw 5mm Ti Lock T25 36mm - [id number] Implanted:Qty: 1 on 03/22/2024 by Erik Marin MD at [facility] Right: Hip Synthes [facility]-[id number] 02/15/2033 412.212S / / [id number] Procedures Procedure Name Priority Date/Time Associated Diagnosis Comments TSH Routine 10/20/2024 2:22 PM EDT Hypothyroidism, unspecified type FREE T4, PLASMA Routine 10/20/2024 2:22 PM EDT Hypothyroidism, unspecified type INSULIN-LIKE GROWTH FACTOR 1 (IGF-1) WITH CALCULATED Z-SCORE (SO) Routine 10/20/2024 2:22 PM EDT Swelling Weight gain TISSUE TRANSGLUTAMINASE (TTG) AB, IGA (SO) Routine 10/20/2024 2:22 PM EDT Acquired hypothyroidism IGA, PLASMA Routine 10/20/2024 2:22 PM EDT Acquired hypothyroidism CA 125 Routine 10/20/2024 9:16 AM EDT Monoallelic mutation of PALB2 gene XR HIP RIGHT 2 OR 3 VIEWS Routine 09/15/2024 9:13 AM EDT Closed fracture of neck of right femur, initial encounter TSH Routine 08/09/2024 10:26 AM EDT Acquired hypothyroidism FREE T4, PLASMA Routine 08/09/2024 10:26 AM EDT Acquired hypothyroidism DEXA BONE DENSITY Routine 03/31/2024 3:2 7 PM EST Age-related osteoporosis with current pathological fracture, initial encounter HEPATITIS C ANTIBODY - ED W/REFLEX TO HCV QUANT PCR STAT 04/26/2021 9:48 AM EST HIV 1/2 ANTIBODY/ANTIGEN SCREEN WITH REFLEX TO HIV I/II DIFFERENTIATION STAT 04/26/2021 9:48 AM EST from Last 3 Months or Most Recently Relevant to Health Maintenance Results * (ABNORMAL) Tissue Transglutaminase (tTG) Ab, IgA (SO) (10/20/2024 2:22 PM EDT) Tissue Transglutaminase (tTG) Ab, IgA 17.87(H) 0.00 - 4.99 FLU 10/24/2024 1:15 AM EDT [facility] Blood Venous blood specimen / Unknown Venipuncture / Unknown 10/20/2024 2:22 PM EDT 10/20/2024 2:22 PM EDT Narrative [facility]) - 10/24/2024 1:15 AM EDT INTERPRETIVE INFORMATION: [...] indicate a response to therapy. Performed By: [facility] [address] [place] [id number] Branch Sales Manager: Jasvir Guzman MD, PhD CLIA Number: [id number] Edu Allen MD LAB REF LAB BLOOD AND FLUID ORD Final Result Performing Organization Address [facility]/ZIP Co de Phone Number [facility] [address] [place] [address] * Insulin-Like Growth Factor 1 with calculated Z- score (10/20/2024 2:22 PM EDT) IGF 1 (Insulin-Like Growth Factor 1) 201 62 - 243 ng/mL 10/23/2024 2:17 AM EDT [facility]) IGF 1 Z Score Calculation 1.2 10/23/2024 2:17 AM EDT [facility] ([facility]) Blood Venous blood specimen / Unknown Venipuncture / Unknown 10/20/2024 2:22 PM EDT 10/20/2024 2:22 PM EDT Narrative [facility] - 10/23/2024 2:17 AM EDT INTERPRETIVE INFORMATION: IGF 1 Z-SCORE CALCULATION A Z score is the number of standard deviations a given result is above (positive score) or below (negative score) the age- and sex-adjusted population mean. Results that are within the IGF-1 reference interval will have a Z score between -2.0 and +2.0. Performed By: [facility] [address] [place] [address] Branch Sales Manager: Jasvir Guzman MD, PhD CLIA Number: [id number] Edu Allen MD LAB BLOOD ORDERABLES Final R esult Performing Organization Address [facility] Co de Phone Number [facility] [address] [place] [address] * Thyroid Stimulating Hormone, Plasma (10/20/2024 2:22 PM EDT) Only the most recent of2 resultswithin the time period is included. Thyroid Stimulating Hormone, Plasma 2.01 0.40 - 4.20 uIU/mL 10/20/2024 5:55 PM EDT [facility] Blood Venous blood specimen / Unknown Venipuncture / Unknown 10/20/2024 2:22 PM EDT 10/20/2024 2:22 PM EDT Narrative [facility] - 10/20/2024 5:55 PM EDT Trimester Specific Ranges TSH ( IU/mL) 1st Trimester 0.1 - 3.0 2nd Trimester 0.19 - 4.06 3rd Trimester 0.3 - 3.7 Edu Allen MD LAB BLOOD ORDERABLES Final R esult Performing Organization Address City/[facility] Co de Phone Number [facility] [address] [place] [address] * Free T4, Plasma (10/20/2024 2:22 PM EDT) Only the most recent of2 resultswithin the time period is included. Free T4, Plasma 1.3 0.8 - 1.7 ng/dL 10/20/2024 5:55 PM EDT [facility] Blood Venous blood specimen / Unknown Venipuncture / Unknown 10/20/2024 2:22 PM EDT 10/20/2024 2:22 PM EDT Narrative [facility] - 10/20/2024 5:55 PM EDT Free T4 Trimester Specific Ranges 1st Trimester 0.9 - 1.50 ng/dL 2nd Trimester 0.7 - 1.40 ng/dL 3rd Trimester 0.7 - 1.24 ng/dL us Edu Allen MD LAB BLOOD ORDERABLES Final R esult Performing Organization Address [facility] Co de Phone Number [facility] [address] [place] [address] * IgA (10/20/2024 2:22 PM EDT) IGA 108 75 - 400 mg/dL 10/20/2024 6:11 PM EDT [facility] Blood Venous blood specimen / Unknown Venipuncture / Unknown 10/20/2024 2:22 PM EDT 10/20/2024 2:22 PM EDT Edu Allen MD LAB BLOOD ORDERABLES Final R esult Performing Organization Address [facility]/ZIP Co de Phone Number [facility] [address] [place] [address] * CA 125 (10/20/2024 9:16 AM EDT) CA 125 7.02 <=38.00 U/mL 10/20/2024 10:33 AM EDT [facility] Blood Venous blood specimen / Unknown Venipuncture / Unknown 10/20/2024 9:16 AM EDT 10/20/2024 9:53 AM EDT Narrative [facility] - 10/20/2024 10:33 AM EDT Performed by Kenneth electrochemiluminescent immunoassay. Results obtained with different test methods or kits cannot be used interchangeably. Jabari Ballard MD LAB BLOOD ORDERABLES Final Result [facility] [address] [place] [address] * XR Hip Right 2 or 3 [...] and sacroiliac joints are normal. Procedure Note Jnoathan Frost MD - 09/15/2024 CLINICAL INDICATION: pain [...] MD IMG XR PROCEDURES Final Resu lt * Dexa Bone Density (03/31/2024 3:27 PM EST) Anatomical Region Laterality Modality L-spine Radio Fluoroscop y Narrative 04/04/2024 9:02 PM EST [facility] - Bone & Mineral Metabolism Clinic [address] [place] [address] DXA Bone Densitometry Report: [03/31/2024] BMD test performed using the [employer] DXA System (analysis version: 14.10) manufactured by [employer]. REFERRING PROVIDER: Dr. Una Turk PA CLINICAL INFORMATION: osteoporosis PATIENT NAME: Sabine Ponce PATIENT AGE: 49 y.o. LEGAL SEX: female RADIOGRAPHIC VIEWS: Sites scanned: AP Spine, HIP Left, RADIUS Left, and TBS COMPARISON STUDY: DXA Axial Prior studies are not available for comparison, DXA Extremity Prior studies are not available for comparison, and TBS Prior studies are not available for comparison FINDINGS: Based on WHO criteria (post-menopausal female) the diagnosis is Osteopenia The lowest T- score is -2.0 in the LFN FRAX (10-year probability of fracture) - Major Osteoporotic: 4.0 %; Hip: 0.6 % The presence of arthritic or degenerative joint changes in the spine could artefactually increase measured BMD. TBS: The TBS L1-L4 of 1.228 indicates degraded microarchitecture FRAX (10-year probability of fracture) - corrected for TBS: Major Osteoporotic: 5.4 %; Hip: 0.8 % TREATMENT RECOMMENDATIONS: Currently available DXA measurement sites, and FRAX could underestimate fracture risk. Patient is at high-risk of future fracture Work up for secondary osteoporosis and metabolic bone disease could be considered based on clinical indications. Additional w/u could include a VFA and forearm DXA for more complete evaluation of fracture risk and BMD respectively Treatment decisions may be based on clinical considerations. Suggest general measures to optimize calcium and vitamin D status, fall prevention measures and reduce fracture risk. Consider repeating this study in 1 year(s) or as clinically indicated to assess bone density change or response to treatment (should be performed on the same DXA scanner to allow for direct comparison and calculation of change in BMD). Una THOMAS IMG DXA PROCEDURES Final Res ult * HIV 1 & 2 Antibody/Antigen Screen (04/26/2021 9:48 AM EST) [facility] HIV 1 & 2 Antibody/Anti gen Screen Nonreactive Nonreactive 04/26/2021 1:44 PM EST [facility] Blood Venous blood specimen / Unknown Venipuncture / Unknown 04/26/2021 9:48 AM EST 04/26/2021 10:01 AM EST Result [facility] Dajuan Pearce MD LAB BLOOD ORDERABLES Final Res ult Performing Organization Address [facility] Co de Phone Number [facility] [address] [place] [address] * [place] Hepatitis C Antibody (04/26/2021 9:48 AM EST) [facility] Hepatitis C Antibody Negative Negative 04/26/2021 1:44 PM EST [facility] Blood Venous blood specimen / Unknown Venipuncture / Unknown 04/26/2021 9:48 AM EST 04/26/2021 10:01 AM EST Result [facility] Dajuan Pearce MD LAB BLOOD ORDERABLES Final Res ult Performing Organization Address [facility] Co de Phone Number [facility] [address] [place] [address] from Last 3 Months or Most Recently Relevant to Health Maintenance Insurance [employer] Advance Directives * Full Code (Latest Code Status on File) Date Activated Date Inactivated Comments 03/22/2024 7:15 PM 03/26/2024 6:08 PM Question Answer Comments Patient has decision-making capacity? Yes * Full Code Date Activated Date Inactivated Comments 03/22/2024 1:47 AM 03/22/2024 7:15 PM Question Answer Comments Patient has decision-making capacity? Yes * Full Code Date Activated Date Inactivated Comments 04/10/2021 6:44 PM 04/11/2021 12:04 AM Question Answer Comments Patient has decision-making capacity? Yes * Full Code Date Activated Date Inactivated Comments 04/04/2021 6:09 PM 04/06/2021 2:20 PM Question Answer Comments Patient has decision-making capacity? Yes Care Teams Jackscrew Man Relationship Specialty Start Date End Date Cory Sandhu MD [address] [phone] PCP - General 01/24/21 Skyler Márquez MD [address] [place] [address] Referring Physician 03/12/21 Farooq Lacey MD [address] [place] [address] Resident Neurology 05/01/21
[2024-10-28 14:47] LABS: Deamidated Gliadin Abs, IgA 25 units (0-19); Deamidated Gliadin Abs, IgG 44 units (0-19); Tissue Transglutaminase IgA Ab 5 U/mL (0-3); Tissue Transglutaminase IgG Ab 40 U/mL (0-5)
[2024-10-28 18:18] LABS: Endomysial IgA Antibody Positive (Negative)
[2024-11-03 09:43] LABS: Reticulin IgA Antibody Negative titer (Neg:<1:2.5)
== END 2024-10-27 23:59 | disposition home or self-care (01) ==
LOC: LAB 11:43
PROVIDERS: PCP Family Medicine; Visit Provider Nurse Practitioner Family
DX: R76.8 Other specified abnormal immunological findings in serum (principal)
CPT/HCPCS: 36415; 83516; 86255; 86256